=== PATIENT | male | born 1945 | race Caucasian/White ===

== ENCOUNTER → 2018-01-21 06:23 | Outpatient (CLI) | payer MEDICARE, BC, SELFPAY ==
--- NOTE | 2018-01-21 13:31 | STRESSREP_ITS ---
Stress Test Report Date: 01/21/2018 Procedure: Pharmacologic stress nuclear imaging study Indications: Atrial fibrillation Consent: Per the patient Procedure: The patient underwent pharmacologic (Regadenoson) evaluation with a peak heart rate of 90 beats per minute (62 predicted maximal heart rate) and a peak blood pressure of 140/86 mmHg. The baseline ECG demonstrated 0 fibrillation; nonspecific T wave abnormality. The peak pharmacologic ECG demonstrated no obvious ECG changes. There were no cardiac dysrhythmias pretest, during pharmacologic infusion, or recovery. There was no complaint of chest discomfort during pharmacologic infusion or recovery. The examination was discontinued secondary to completion of protocol. Impression: 1. Pharmacologic (Regadenoson) evaluation 2. Peak pharmacologic ECG with no obvious ECG changes. 3. There were no cardiac dysrhythmias pretest, during pharmacologic infusion, or recovery. 4. Nuclear images pending Myocardial perfusion imaging study: Technique: The patient was injected with 144.4 millicuries of technetium 99m Cardiolite and subsequently rest SPECT Cardiolite nuclear imaging was obtained in the horizontal long, vertical long, and short axis views. The patient underwent pharmacologic (Regadenoson) evaluation with a peak heart rate of 90 beats per minute (62 % percent predicted maximal heart rate) and a peak blood pressure of 140/86 mmHg. The patient was injected with 44.1 millicuries of technetium 99m Cardiolite and subsequently stress SPECT Cardiolite nuclear imaging was obtained in the horizontal long, vertical long, and short axis views. A gated Cardiolite study at peak stress was obtained. Interpretation: Rest and stress SPECT Cardiolite nuclear imaging status post realignment, normalization, and attenuation correction demonstrate small area of subtle diminished tracer uptake near the apical segments without significant change between rest and stress. There is end systolic thickening and brightening. The gated Cardiolite study demonstrates myocardial thickening and inward wall motion. The reported LVEF is 69%. Impression: 1. And stress SPECT Cardiolite nuclear imaging demonstrate myocardial perfusion changes appearing compatible with the effects of physiologic apical thinning with no myocardial perfusion changes considered diagnostic for associated stress-induced myocardial ischemia or previous myocardial injury/infarction. 2. The gated Cardiolite study reports an LVEF of 69 %. This note was generated with Ocapiation software. It may contain incorrect words, spelling, and punctuation that were not noted in checking the note before signing.
== END ==
PROVIDERS: Family Provider Family Medicine; PCP Family Medicine; Referring Provider Internal Medicine Cardiovascular Disease; Visit Provider Internal Medicine Cardiovascular Disease
DX: I48.1 Persistent atrial fibrillation (principal); R94.31 Abnormal electrocardiogram [ECG] [EKG]
CPT/HCPCS: 78452; 93017; A9500; A4216; J2785

== ENCOUNTER → 2018-01-31 10:18 | Outpatient (CLI) | payer MEDICARE, BC, SELFPAY ==
[2018-01-31 11:13] LABS: Anion Gap 3 (5-15); BUN 15 mg/dL (7-18); BUN/Creat Ratio 11.5 RATIO (10-20); Calcium,Total 8.6 mg/dL (8.5-10.1); Chloride 106 mmol/L (98-107); EST Glomerular Filtration Rate 57 mL/min (>60); Est Glom Filt Rate - Afr Amer 69 mL/min (>60); Glucose 213 mg/dL (74-106); Potassium 4.5 mmol/L (3.5-5.1); Sodium Level 137 mmol/L (136-145)
== END ==
PROVIDERS: Family Provider Family Medicine; PCP Family Medicine; Referring Provider Internal Medicine Cardiovascular Disease; Visit Provider Internal Medicine Cardiovascular Disease
DX: I48.91 Unspecified atrial fibrillation (principal)
CPT/HCPCS: 36415; 80048

== ENCOUNTER 2018-02-04 10:46 | Day surgery (SDC) | payer MEDICARE, BC, SELFPAY ==
[2018-02-03 10:13] VITALS: BMI 31.7
--- NOTE | 2018-02-04 13:29 | PCM.OP.BLANK ---
Operative Report Date of Procedure: 02/04/18 CONSCIOUS SEDATION REPORT DATE OF SERVICE: February 04, 2018 BRIEF HISTORY OF PRESENT ILLNESS: The patient is a 73-year-old male who presents to [facility] to undergo an elective outpatient cardioversion due to underlying atrial fibrillation. The patient's last surface echocardiogram revealed an ejection fraction of approximately 55%. He has never undergone a previous attempt at cardioversion. He denies any medication allergies. He does report a history of obstructive sleep apnea, for which he reportedly utilizes nocturnal PAP therapy. He denies a history of COPD or asthma. PHYSICAL EXAMINATION: VITAL SIGNS: Reviewed and were acceptable. GENERAL: The patient is an obese male, in no apparent distress, speaking in full sentences. HEENT: Normocephalic, atraumatic. Mucous membranes are moist and pink. Good mouth opening noted. Trachea is midline. Good neck mobility. MPIII CHEST: S1, S2 irregularly irregular. No murmurs, rubs or gallops were noted. LUNGS: Clear to auscultation bilaterally without appreciable wheezes, rales or rhonchi. ABDOMEN: Soft, nontender, nondistended. Positive bowel sounds. EXTREMITIES: There is no clubbing, cyanosis or edema. ASA Class: II DESCRIPTION OF PROCEDURE: After confirmation of informed consent, the patient's anesthesia plan was reviewed in detail. Propofol was chosen. Risks and benefits were reviewed and the patient agreed to proceed. At 1236, the patient received his first bolus of propofol. In total, the patient received 80 mg of propofol, after which time, he received a 200 J synchronized cardioversion by Dr. Rose at the bedside. This was unsuccessful in achieving normal sinus rhythm. The patient was then given an additional 40 mg of propofol, after which time, he received a 300 J synchronized cardioversion. This, too, was unsuccessful in restoring normal sinus rhythm. In total, the patient received 120 mg of propofol throughout the entire procedure. The patient was monitored until 1247, at which time, he reached his baseline mental status and function. The patient tolerated the procedure well. COMPLICATIONS: None ESTIMATED BLOOD LOSS: None RECOMMENDATIONS: Okay to recover in usual fashion. Code Visit 9xxxx: Other Procedure See Report - [id number]
--- NOTE | 2018-02-04 13:53 | PCM.OP.BLANK ---
Problem List (1) Atrial fibrillation Status: Chronic Qualifiers: Atrial fibrillation type: persistent Qualified Code(s): I48.1 - Persistent atrial fibrillation Operative Report Date of Procedure: 02/04/18 Procedure: Synchronized biphasic DC cardioversion Indications: Atrial fibrillation Consent: Per the patient Premedications: Per Dr. Anmol Jewell of pulmonology and critical care medicine with propofol 120 mg IV push total Procedure: Synchronized biphasic DC cardioversion: 200 J x1: Result: Sinus rhythm with return to atrial fibrillation Synchronized biphasic DC cardioversion: 300 J x1: Result: Sinus rhythm with return to atrial fibrillation Complications: No apparent complications This note was generated using a voice recognition system and there may be incorrect words, spelling or punctuation that were not noted when reviewing the office note prior to saving.
== END 2018-02-04 14:00 | disposition home or self-care (01) ==
LOC: CLSP 10:49
PROVIDERS: Family Provider Family Medicine; PCP Family Medicine; Referring Provider Internal Medicine Cardiovascular Disease; Visit Provider Internal Medicine Cardiovascular Disease
DX: I48.1 Persistent atrial fibrillation (principal); G47.33 Obstructive sleep apnea (adult) (pediatric); E66.9 Obesity, unspecified; E78.5 Hyperlipidemia, unspecified; I10 Essential (primary) hypertension; E11.9 Type 2 diabetes mellitus without complications; K21.9 Gastro-esophageal reflux disease without esophagitis; Z68.31 Body mass index [BMI] 31.0-31.9, adult; Z85.46 Personal history of malignant neoplasm of prostate; Z87.891 Personal history of nicotine dependence
CPT/HCPCS: 92960; 93005; J7040

== ENCOUNTER 2018-02-25 08:24 | Observation (INO) | payer MEDICARE, BC, SELFPAY ==
[2018-02-25] VITALS (8 sets, daily range): BP systolic 117–120; BP diastolic 71–73; PULSE 55–86; RESP 16; TEMP 36.5–36.6; O2SAT 95–96; BMI 30.8
--- NOTE | 2018-02-25 08:40 | EKG12_ITS ---
Test Reason : MED Blood Pressure : / mmHG Vent. Rate : 087 BPM Atrial Rate : 416 BPM P-R Int : 000 ms QRS Dur : 100 ms QT Int : 364 ms P-R-T Axes : 000 -45 006 degrees QTc Int : 438 ms Atrial fibrillation Left axis deviation Abnormal ECG When compared with ECG of 04-FEB-2018 11:04, No significant change was found Confirmed by MUNDO BROWN, JESICA ([id number]), manuscript editor ALEX NICOLE ([id number]) on 03/03/2018 2:24:35 PM Referred By: Richie Rose Confirmed By:JESICA FLOWER MD
[2018-02-25 09:27] LABS: Hematocrit 44.6 % (40-54); Mean Corp Hgb Conc 33.6 g/gl (32-36); Mean Platelet Vol. 10.4 fl (6.2-12.0); Platelet Count 127 K/mm3 (150-450); RBC Distribution Width CV 13.7 % (11.6-14.6); RBC Distribution Width SD 48.3 fl (35.1-43.9); Red Blood Count 4.55 M/mm3 (4.6-6.2); White Blood Count 5.6 K/mm3 (4.4-11.0)
[2018-02-25 09:29] LABS: Scan Indicated on CBC? Y/N NO
[2018-02-25 09:39] LABS: AST(SGOT) 24 U/L (15-37); Alanine Aminotransfer ALT/SGPT 54 U/L (16-61); Albumin, Serum 3.5 g/dL (3.2-5.0); Alkaline Phosphatase 51 U/L (45-117); Anion Gap 8 (5-15); BUN 24 mg/dL (7-18); BUN/Creat Ratio 12.8 RATIO (10-20); Calcium,Total 8.8 mg/dL (8.5-10.1); Chloride 106 mmol/L (98-107); Creatinine, Serum 1.88 mg/dL (0.70-1.30); EST Glomerular Filtration Rate 37 mL/min (>60); Est Glom Filt Rate - Afr Amer 45 mL/min (>60); Estimated Creatinine Clearance 39.47 ml/min; Globulin 3.4 g/dL (2.2-4.2); Glucose 307 mg/dL (74-106); Magnesium 1.8 mg/dL (1.6-2.6); Potassium 4.7 mmol/L (3.5-5.1); Protein, Total 6.9 g/dL (6.4-8.2); Sodium Level 137 mmol/L (136-145)
[2018-02-25] MEDS: Flecainide 100 MG Tablet PO ×2 (09:39→21:33)
--- NOTE | 2018-02-25 11:25 | NURSING ---
Patient received phone call that his , a patient a [facility], has head lice. This RN inspected patient's head and saw no evidence of head lice on patient.
--- NOTE | 2018-02-25 11:40 | EKG12_ITS ---
Test Reason : MED Blood Pressure : / mmHG Vent. Rate : 063 BPM Atrial Rate : 326 BPM P-R Int : 000 ms QRS Dur : 106 ms QT Int : 396 ms P-R-T Axes : 000 -43 -06 degrees QTc Int : 405 ms Atrial fibrillation Left axis deviation Abnormal ECG When compared with ECG of 25-FEB-2018 09:18, MANUAL COMPARISON REQUIRED, DATA IS UNCONFIRMED Confirmed by MUNDO BROWN, JESICA ([id number]), publications editor ALEX NICOLE ([id number]) on 03/03/2018 2:24:06 PM Referred By: Richie Rose Confirmed By:JESICA FLOWER MD
[2018-02-25 11:45] LABS: Bedside Glucose 250 mg/dL (70-110)
--- NOTE | 2018-02-25 17:04 | HP.PCM_ITS ---
Problem List (1) Encounter for monitoring anti-arrhythmic therapy Status: Acute (2) Atrial fibrillation Status: Chronic Qualifiers: (3) Hyperlipemia Status: Chronic Qualifiers: (4) Hypertension Status: Chronic Qualifiers: (5) Type 2 diabetes mellitus Status: Chronic (6) Obstructive sleep apnea Status: Chronic History of Present Illness Date of Admission: 02/25/18 The patient is a 73 year old white male with a past cardiovascular history which has included underlying atrial fibrillation, hyperlipidemia, hypertension, diabetes mellitus, and obstructive sleep apnea (followed by Dr. Farnsworth), who presents for antiarrhythmic medication initiation/monitoring. He has undergone evaluation for his atrial dysrhythmia. He had a transthoracic echocardiogram performed on 09/19/2017 at [facility] in [place], [place]. According to report the left ventricle was normal with an LVEF of 55%. The atria were normal size. There was no MR. There was mild AI. There was trivial TR and ID. He also subsequently underwent evaluation with a pharmacologic stress nuclear imaging study at [facility]. This was considered negative for evidence of inducible myocardial ischemia. He underwent an attempt at synchronized biphasic DC cardioversion on 02/04/2018. He was able to regain sinus rhythm but not maintain sinus rhythm. He presents today for initiation of antiarrhythmic therapy. He states he is doing well. He denies any ongoing chest discomfort or difficulty breathing at this time. There has been no ongoing potation or rapid rate sensations. There has been no near syncope or syncope. [] Past Medical History Allergies/Adverse Reactions: Allergies No Known Allergies Allergy (Verified 02/11/18 10:28) Home Medications: Ambulatory Orders Medication Instructions Recorded aspirin 81 mg tablet,delayed 81 mg PO DAILY 01/07/18 release diltiazem ER 180 mg capsule,24 180 mg PO DAILY 01/07/18 hr,extended release esomeprazole magnesium 40 mg 40 mg PO DAILY 01/07/18 capsule,delayed release glimepiride 4 mg tablet 2 mg PO BIDCM 01/07/18 lisinopril 20 mg tablet 20 mg PO DAILY 01/07/18 ranitidine 150 mg capsule 150 mg PO DAILY@1700 01/07/18 rivaroxaban 20 mg tablet 20 mg PO DAILY 01/07/18 sitagliptin 100 mg tablet 100 mg PO DAILY 01/07/18 Past Medical History (Chronic Problems): Chronic Problems (Last Reviewed 01/09/18 @ 11:20 by Julia Ramirez) Obstructive sleep apnea (Chronic) Atrial fibrillation (Chronic) Hyperlipemia (Chronic) Hypertension (Chronic) Type 2 diabetes mellitus (Chronic) Lives: Spouse/ Significant Other Smoking Status: Former smoker Alcohol: None Drugs: None Review of Systems - Review of Systems General: Denies: Fever, Night Sweats, Fatigue Cardiovascular: Denies: Chest Discomfort, Shortness of Breath, Orthopnea, PND, Peripheral Edema, Palpitations, Lightheadedness, Dizziness, Near Syncope, Syncope Respiratory: Denies: Cough, Sputum Production, Hemoptysis Gastrointestinal: Denies: Hematemesis, Hematochezia, Melena Genitourinary: Denies: Dysuria, Hematuria Skin: Denies: Rash Subjectve: This is a 73-year-old white male who appears to be resting comfortably at the moment in no acute distress. Objective: Vital Signs Temp Pulse Resp BP Pulse Ox 97.7 F L 68 16 117/72 95 02/25/18 15:18 02/25/18 15:18 02/25/18 15:18 02/25/18 15:18 02/25/18 15:18 Oxygen Delivery Method Room Air Weight: 240 lb Body Mass Index (BMI) 30.8 Intake and Output for Last 24 Hours 02/23/18 02/24/18 02/25/18 23:59 23:59 23:59 Intake Total 100 / 100 Balance 100 / 100 General: Awake, Alert, Oriented x 3, Cooperative, No Acute Distress HEENT: Atraumatic, Normocephalic, PERRL, EOMI, Sclera Non Icteric Oral: Moist Mucosa Neck: Supple, Good ROM, No JVD Lungs: Clear to auscultation Cardiovascular: Irregular Rhythm, Normal S1, Normal S2 Vascular: No Carotid Bruits Abdomen: Bowel Sounds Present, Soft, Non Tender Extremities: No Cyanosis, No Clubbing, No edema Neurological: No Focal Motor or Sensory Deficit Psych/Mental Status: Appropriate, Normal Affect VTE Information - Inpt Only VTE Present on Admission: No VTE Mechan Device Prophylaxis: None VTE Pharm Prophylaxis ordered?: No Reason prophylaxis not ordered:: Treatment Not Indicated - Patient on oral systemic anticoagulant therapy 02/25/18 09:15: WBC 5.6, RBC 4.55 L, Hgb 15.0, Hct 44.6, MCV 98.0 H, MCH 33.0 H, MCHC 33.6, RDW 13.7, RDW Differential 48.3 H, Plt Count 127 L, MPV 10.4 02/25/18 09:15: Sodium 137, Potassium 4.7, Chloride 106, Carbon Dioxide 23.0, Anion Gap 8, BUN 24 H, Creatinine 1.88 H, Est GFR (MDRD) Af Amer 45 L, Est GFR (MDRD) Non-Af 37 L, BUN/Creatinine Ratio 12.8, Glucose 307 H, Calcium 8.8, Magnesium 1.8, Total Bilirubin 1.10 H Rhythm: Atrial fibrillation EKG: Atrial fibrillation; left axis deviation; poor R wave progression ECHO: As noted above Stress Test: As noted above Assessment/Plan 1. Antiarrhythmic medication initiation and monitoring The patient is admitted for antiarrhythmic medication initiation and monitoring. He is going to continue rate control therapy and anticoagulant therapy. He is being started on antiarrhythmic therapy with flecainide/Tambocor. He will need to be monitored in the hospital for a minimum of 4 doses of antiarrhythmic therapy. Depending upon his clinical course he will need to be considered for a reattempt at regaining sinus rhythm, if he does not have spontaneous conversion, with a repeat synchronized biphasic DC cardioversion. Also if he tolerates his antiarrhythmic without any obvious events he will need to be considered for future exercise tolerance test to evaluate his cardiac rate/rhythm response to his antiarrhythmic therapy. 2. Atrial fibrillation Again he will continue to be monitored. He will initiate medical management as noted above. He will proceed with additional evaluation care as deemed appropriate. 3. Hyperlipidemia He will continue risk factor evaluation and care as deemed appropriate. 4. Hypertension His blood pressure will be followed. He will continue medical management with adjustment as needed. 5. Diabetes mellitus He will continue medical management and follow-up as deemed appropriate. 6. Obstructive sleep apnea He will continue to follow with his membership sales manager for his AUGUSTIN. Comment: The above was discussed and reviewed with patient. He was agreeable to this approach. This note was generated with F[employer]oration software. It may contain incorrect words, spelling, and punctuation that were not noted in checking the note before signing.
[2018-02-25 21:46] LABS: Bedside Glucose 279 mg/dL (70-110)
[2018-02-25] MEDS: Famotidine 20 MG Tablet PO (22:42)
[2018-02-25] MEDS: Glimepiride 2 MG Tablet PO (22:42)
--- NOTE | 2018-02-25 23:35 | EKG12_ITS ---
Test Reason : PCU ADMIT Blood Pressure : / mmHG Vent. Rate : 059 BPM Atrial Rate : 375 BPM P-R Int : 000 ms QRS Dur : 106 ms QT Int : 410 ms P-R-T Axes : 000 -45 -07 degrees QTc Int : 405 ms Atrial fibrillation with slow ventricular response Left axis deviation Abnormal ECG When compared with ECG of 25-FEB-2018 11:33, MANUAL COMPARISON REQUIRED, DATA IS UNCONFIRMED Confirmed by MUNDO BROWN, JESICA ([id number]), editor in chief newspaper ALEX NICOLE ([id number]) on 03/03/2018 2:05:51 PM Referred By: Richie Rose Confirmed By:JESICA FLOWER MD
[2018-02-26] VITALS (10 sets, daily range): BP systolic 115–126; BP diastolic 71–77; PULSE 66–98; RESP 12–18; TEMP 36.5–36.7; O2SAT 92–98
--- NOTE | 2018-02-26 05:55 | EKG12_ITS ---
Test Reason : MED Blood Pressure : / mmHG Vent. Rate : 059 BPM Atrial Rate : 288 BPM P-R Int : 000 ms QRS Dur : 110 ms QT Int : 412 ms P-R-T Axes : 000 -48 012 degrees QTc Int : 407 ms Atrial fibrillation with slow ventricular response Left axis deviation Abnormal ECG When compared with ECG of 26-FEB-2018 11:39, MANUAL COMPARISON REQUIRED, DATA IS UNCONFIRMED Confirmed by MUNDO BROWN, JESICA ([id number]), communications editor ALEX NICOLE ([id number]) on 03/03/2018 1:49:44 PM Referred By: Richie Rose Confirmed By:JESICA FLOWER MD
[2018-02-26 06:09] LABS: Anion Gap 9 (5-15); BUN 22 mg/dL (7-18); BUN/Creat Ratio 16.7 RATIO (10-20); Chloride 104 mmol/L (98-107); Cholesterol 169 mg/dL (200); Creatinine, Serum 1.32 mg/dL (0.70-1.30); EST Glomerular Filtration Rate 56 mL/min (>60); Est Glom Filt Rate - Afr Amer 68 mL/min (>60); Estimated Creatinine Clearance 56.22 ml/min; Glucose 221 mg/dL (74-106); High Density Lipoprotein 44 mg/dL; Potassium 4.1 mmol/L (3.5-5.1); Sodium Level 139 mmol/L (136-145); Triglycerides 146 mg/dL; Very Low Density Lipoprotein 29 mg/dL (5-40)
[2018-02-26 07:11] LABS: Bedside Glucose 240 mg/dL (70-110)
[2018-02-26] MEDS: Flecainide 100 MG Tablet PO ×2 (09:34→21:09)
[2018-02-26] MEDS: Pantoprazole Sodium 40 MG Tablet PO (09:34)
[2018-02-26] MEDS: dilTIAZem CD 180 MG Capsule PO (09:34)
[2018-02-26] MEDS: LINAGLIPTIN 5 MG TABLET PO (09:34)
[2018-02-26] MEDS: Lisinopril 20 MG Tablet PO (09:34)
[2018-02-26] MEDS: Glimepiride 4 MG Tablet PO (09:35)
[2018-02-26] MEDS: Aspirin 81 MG TAB.CHEW PO (09:35)
--- NOTE | 2018-02-26 11:24 | PN.CARD_ITS ---
Subjectve: Shunt is awake and alert. He has been up and ambulating. He denies any ongoing chest discomfort, difficulty breathing, or obvious palpitations. Objective: Vital Signs Temp Pulse Resp BP Pulse Ox 97.7 F L 75 12 123/71 H 94 02/26/18 09:15 02/26/18 10:58 02/26/18 09:15 02/26/18 09:15 02/26/18 09:15 Oxygen Delivery Method Room Air Weight: 240 lb Body Mass Index (BMI) 30.8 Intake and Output for Last 24 Hours 02/24/18 02/25/18 02/26/18 23:59 23:59 23:59 Intake Total 580 / 580 620 / 620 Output Total 2 / Balance 578 / 578 620 / 620 General: Awake, Alert, Oriented x 3, Cooperative, No Acute Distress HEENT: Atraumatic, Normocephalic, PERRL, EOMI Oral: Moist Mucosa Neck: Supple, Good ROM, No JVD Lungs: Clear to auscultation Cardiovascular: Irregular Rhythm, Normal S1, Normal S2 Vascular: No Carotid Bruits Abdomen: Bowel Sounds Present, Soft, Non Tender Extremities: No Cyanosis, No Clubbing, No edema Neurological: No Focal Motor or Sensory Deficit Psych/Mental Status: Appropriate, Normal Affect 02/26/18 05:25: Sodium 139, Potassium 4.1, Chloride 104, Carbon Dioxide 26.0, Anion Gap 9, BUN 22 H, Creatinine 1.32 H, Est GFR (MDRD) Af Amer 68, Est GFR (MDRD) Non-Af 56 L, BUN/Creatinine Ratio 16.7, Glucose 221 H, Calcium 9.0, Triglycerides 146, Cholesterol 169, LDL Cholesterol 96, VLDL Cholesterol 29, HDL Cholesterol 44 Rhythm: Atrial fibrillation EKG: Atrial fibrillation: No acute ECG changes Medical Necessity - Tobacco Use Smoking Status: Former smoker Assessment/Plan 1. Antiarrhythmic medication initiation and monitoring The patient is admitted for antiarrhythmic medication initiation and monitoring. Thus far he appears to be tolerating antiarrhythmic initiation without obvious adverse event. He is going to continue rate control therapy and anticoagulant therapy. He is being started on antiarrhythmic therapy with flecainide/Tambocor. He will need to be monitored in the hospital for a minimum of 4 doses of antiarrhythmic therapy. Depending upon his clinical course he will need to be considered for a reattempt at regaining sinus rhythm, if he does not have spontaneous conversion, with a repeat synchronized biphasic DC cardioversion. Also if he tolerates his antiarrhythmic without any obvious events he will need to be considered for future exercise tolerance test to evaluate his cardiac rate/rhythm response to his antiarrhythmic therapy. 2. Atrial fibrillation Again he will continue to be monitored. He will initiate medical management as noted above. He will proceed with additional evaluation care as deemed appropriate. 3. Hyperlipidemia He will continue risk factor evaluation and care as deemed appropriate. 4. Hypertension His blood pressure will be followed. He will continue medical management with adjustment as needed. 5. Diabetes mellitus He will continue medical management and follow-up as deemed appropriate. 6. Obstructive sleep apnea He will continue to follow with his electron tube assembler for his AUGUSTIN. Comment: The above was discussed and reviewed with patient. This note was generated with LocalView dictation software. It may contain incorrect words, spelling, and punctuation that were not noted in checking the note before signing.
--- NOTE | 2018-02-26 11:30 | EKG12_ITS ---
Test Reason : FLECAINIDE/MED Blood Pressure : / mmHG Vent. Rate : 077 BPM Atrial Rate : 322 BPM P-R Int : 000 ms QRS Dur : 106 ms QT Int : 382 ms P-R-T Axes : 000 -49 005 degrees QTc Int : 432 ms Atrial flutter with variable A-V block Left axis deviation Abnormal ECG When compared with ECG of 26-FEB-2018 04:56, MANUAL COMPARISON REQUIRED, DATA IS UNCONFIRMED Confirmed by MUNDO BROWN, JESICA ([id number]), deputy editor in chief ALEX NICOLE ([id number]) on 03/03/2018 2:02:18 PM Referred By: Richie Rose Confirmed By:JESICA FLOWER MD
[2018-02-26 11:40] LABS: Bedside Glucose 275 mg/dL (70-110)
[2018-02-26] MEDS: Insulin Lispro 100 UNIT/ML INSULN.PEN SC ×3 (13:35→21:09)
[2018-02-26 16:50] LABS: Bedside Glucose 230 mg/dL (70-110)
[2018-02-26] MEDS: Rivaroxaban 15 MG Tablet PO (17:21)
[2018-02-26] MEDS: Glimepiride 2 MG Tablet PO (17:21)
[2018-02-26] MEDS: Famotidine 20 MG Tablet PO (21:09)
--- NOTE | 2018-02-26 23:00 | EKG12_ITS ---
Test Reason : Blood Pressure : / mmHG Vent. Rate : 071 BPM Atrial Rate : 375 BPM P-R Int : 000 ms QRS Dur : 108 ms QT Int : 414 ms P-R-T Axes : 000 -48 -01 degrees QTc Int : 449 ms Atrial fibrillation Left axis deviation Abnormal ECG When compared with ECG of 25-FEB-2018 23:30, MANUAL COMPARISON REQUIRED, DATA IS UNCONFIRMED Confirmed by MUNDO BROWN, JESICA ([id number]), city editor ALEX NICOLE ([id number]) on 03/03/2018 2:05:11 PM Referred By: Richie Rose Confirmed By:JESICA FLOWER MD
[2018-02-26 23:30] LABS: Bedside Glucose 236 mg/dL (70-110)
[2018-02-27 03:00] VITALS: BP 118/78; PULSE 64; PULSE 67; RESP 14; TEMP 36.7; O2SAT 97
--- NOTE | 2018-02-27 05:55 | EKG12_ITS ---
Test Reason : AM EKG Blood Pressure : / mmHG Vent. Rate : 064 BPM Atrial Rate : 100 BPM P-R Int : 000 ms QRS Dur : 108 ms QT Int : 410 ms P-R-T Axes : 000 -50 005 degrees QTc Int : 422 ms Atrial fibrillation Left axis deviation Abnormal ECG When compared with ECG of 26-FEB-2018 22:56, MANUAL COMPARISON REQUIRED, DATA IS UNCONFIRMED Confirmed by MUNDO BROWN, JESICA ([id number]), book or script editor ALEX NICOLE ([id number]) on 03/03/2018 1:50:18 PM Referred By: Richie Rose Confirmed By:JESICA FLOWER MD
[2018-02-27 06:29] LABS: Anion Gap 11 (5-15); BUN 24 mg/dL (7-18); BUN/Creat Ratio 17.1 RATIO (10-20); Calcium,Total 9.2 mg/dL (8.5-10.1); Chloride 102 mmol/L (98-107); EST Glomerular Filtration Rate 53 mL/min (>60); Est Glom Filt Rate - Afr Amer 64 mL/min (>60); Estimated Creatinine Clearance 53.01 ml/min; Glucose 224 mg/dL (74-106); Potassium 4.3 mmol/L (3.5-5.1); Sodium Level 137 mmol/L (136-145)
[2018-02-27 06:59] VITALS: PULSE 72
[2018-02-27 09:00] VITALS: BP 116/69; PULSE 71; RESP 16; TEMP 36.4; O2SAT 95
[2018-02-27] MEDS: Glimepiride 4 MG Tablet PO (09:15)
[2018-02-27] MEDS: Pantoprazole Sodium 40 MG Tablet PO (09:15)
[2018-02-27] MEDS: Insulin Lispro 100 UNIT/ML INSULN.PEN SC ×2 (09:15→11:25)
[2018-02-27] MEDS: LINAGLIPTIN 5 MG TABLET PO (09:15)
[2018-02-27] MEDS: Flecainide 100 MG Tablet PO (09:15)
[2018-02-27] MEDS: Aspirin 81 MG TAB.CHEW PO (09:15)
[2018-02-27] MEDS: dilTIAZem CD 180 MG Capsule PO (09:15)
[2018-02-27] MEDS: Lisinopril 20 MG Tablet PO (09:15)
[2018-02-27 11:07] VITALS: PULSE 70
--- NOTE | 2018-02-27 11:20 | EKG12_ITS ---
Test Reason : Blood Pressure : / mmHG Vent. Rate : 067 BPM Atrial Rate : 063 BPM P-R Int : 000 ms QRS Dur : 110 ms QT Int : 404 ms P-R-T Axes : 000 -52 006 degrees QTc Int : 426 ms Atrial fibrillation Left axis deviation Abnormal ECG When compared with ECG of 27-FEB-2018 04:53, MANUAL COMPARISON REQUIRED, DATA IS UNCONFIRMED Confirmed by MUNDO BROWN, JESICA ([id number]), manuscript editor ALEX NICOLE ([id number]) on 03/03/2018 1:50:33 PM Referred By: Richie Rose Confirmed By:JESICA FLOWER MD
[2018-02-27 11:41] LABS: Bedside Glucose 258 mg/dL (70-110)
--- NOTE | 2018-02-27 12:20 | CASEMGMT ---
This [facility] room with HODGE form at this time, explanation done and pt voices understanding. Pt signed HODGE form a this time. Pt voices no further questions/concerns/needs at this time. Original to chart and copy to pt at this time. Jass BIGGS CM
[2018-02-27 14:55] VITALS: BP 117/73; PULSE 74; RESP 18; TEMP 36.4; O2SAT 97
[2018-02-27 15:16] VITALS: PULSE 73
--- NOTE | 2018-02-27 15:33 | PCM.DC ---
- Discharge Diagnoses Current Active Problems: Current Active and Chronic Problems (Last Reviewed 01/09/18 @ 11:20 by Julia Ramirez) Encounter for monitoring anti-arrhythmic therapy (Acute) Obstructive sleep apnea (Chronic) You will use the following diet at home:: Calorie/Carbohydrate Controlled (specify 1200, 1400, etc), Cardiac Your food should be the consistency of: Regular Discharge Activity: Return to Normal Activity May resume sexual activity in: No Restrictions Call your doctor if you observe: Dizziness, Fainting spells Allergies/Adverse Reactions: Allergies No Known Allergies Allergy (Verified 02/11/18 10:28) Medications to take at Discharge aspirin 81 mg tablet,delayed release 81 mg PO DAILY 01/07/18 diltiazem ER 180 mg capsule,24 hr,extended release 180 mg PO DAILY 01/07/18 esomeprazole magnesium 40 mg capsule,delayed release 40 mg PO DAILY 01/07/18 glimepiride 4 mg tablet 2 mg PO BIDCM 01/07/18 lisinopril 20 mg tablet 20 mg PO DAILY 01/07/18 ranitidine 150 mg capsule 150 mg PO QHS 01/07/18 rivaroxaban 20 mg tablet 20 mg PO DAILY 01/07/18 sitagliptin 100 mg tablet 100 mg PO DAILY 01/07/18 Glimepiride [Amaryl] 2 mg PO QHS 02/25/18 Aspirin [Aspirin, Baby] 81 mg PO DAILY@0800 tab.chew 02/27/18 Diltiazem CD [Cardizem CD] 180 mg PO DAILY capsule 02/27/18 Flecainide [Tambocor] 100 mg PO BID #60 tablet 02/27/18 Glimepiride [Amaryl] 4 mg PO DAILY@0800 tablet 02/27/18 Linagliptin [Tradjenta] 5 mg PO DAILY tablet 02/27/18 Lisinopril [Zestril] 20 mg PO DAILY tablet 02/27/18 Pantoprazole Sodium [Protonix] 40 mg PO DAILY tablet 02/27/18 Rivaroxaban [Xarelto] 15 mg PO DAILY@1700 tablet 02/27/18 The following prescriptions were given: Flecainide [Tambocor] 100 mg PO BID #60 tablet Primary Care Physician: Gabe Beaver [Primary Care Provider] - Test Results: Test results from this visit will be discussed in further detail at your follow-up appointment, if applicable. Please Follow Up With: Richie Rose MD When: [facility] to contact the patient and arrange outpatient follow up
--- NOTE | 2018-02-27 15:39 | DS.PCM_ITS ---
Discharge Date and Diagnosis - Problem List Patient Problems: Active and Suspected Problems (Last Reviewed 01/09/18 @ 11:20 by Julia Ramirez) Encounter for monitoring anti-arrhythmic therapy (Acute) Date of Admission: 02/25/18 Date of Discharge: 02/27/18 - Primary Discharge Diagnosis Active and Suspected Problems (Last Reviewed 01/09/18 @ 11:20 by Julia Ramirez) Encounter for monitoring anti-arrhythmic therapy (Acute) - Secondary Discharge Diagnosis Chronic Problems (Last Reviewed 01/09/18 @ 11:20 by Julia Ramirez) Obstructive sleep apnea (Chronic) Atrial fibrillation (Chronic) Hyperlipemia (Chronic) Hypertension (Chronic) Type 2 diabetes mellitus (Chronic) Hospital Course and Treatment Summary of Care Provided: The patient is a 73 year old white male with a past medical history of atrial fibrillation. He was admitted to [facility] for antiarrhythmic medication monitoring with flecainide/tambocor. During the admission he had continued cardiac rhythm monitoring, ECG follow up, and laboratory follow up. He remained stable with no adverse events. He was released on 02/27/2018 for continued outpatient cardiology follow up with consideration for future repeat DC cardioversion (on antiarrhythmic therapy). [] Patient Problems: Active and Suspected Problems (Last Reviewed 01/09/18 @ 11:20 by Julia Ramirez) Encounter for monitoring anti-arrhythmic therapy (Acute) Subjective: This is a 73 yo white male who appears in no acute distress. - Physical Exam General: Alert, Oriented x3, Cooperative, No apparent distress HEENT: Atraumatic, PERRLA, EOMI, Normocephalic Oral: Moist Mucosa Neck: Supple, No JVD Lungs: Clear to auscultation Cardiovascular: Normal S1, Normal S2, Irregular Rate Abdomen: Bowel Sounds Present, Soft, Non Tender Extremities: No clubbing, No cyanosis, No edema Neurological: Neuro grossly intact Psych/Mental Status: Normal Affect Vital Signs Temp Pulse Resp BP Pulse Ox 97.5 F L 74 18 117/73 97 02/27/18 14:55 02/27/18 14:55 02/27/18 14:55 02/27/18 14:55 02/27/18 14:55 Oxygen Delivery Method Room Air Weight: 240 lb Body Mass Index (BMI) 30.8 Intake and Output for Last 24 Hours 02/25/18 02/26/18 02/27/18 23:59 23:59 23:59 Intake Total 580 / 580 1580 / 1580 620 / 620 Output Total 2 / 2 Balance 578 / 578 1580 / 1580 620 / 620 Laboratory Tests Past 24 Hrs 02/27/18 05:55 Sodium 137 Potassium 4.3 Chloride 102 Carbon Dioxide 24.0 Anion Gap 11 BUN 24 H Creatinine 1.40 H Estim Creat Clear Calc 53.01 Est GFR (MDRD) Af Amer 64 Est GFR (MDRD) Non-Af 53 L BUN/Creatinine Ratio 17.1 Glucose 224 H Calcium 9.2 POC Glucose 02/27/18 02/26/18 02/26/18 11:23 21:07 16:22 POC Glucose 258 H 236 H 230 H Discharge Activity: Return to Normal Activity May resume sexual activity in: No Restrictions Call your doctor if you observe: Dizziness, Fainting spells Home Medications: Medications to take at Discharge aspirin 81 mg tablet,delayed release 81 mg PO DAILY 01/07/18 diltiazem ER 180 mg capsule,24 hr,extended release 180 mg PO DAILY 01/07/18 esomeprazole magnesium 40 mg capsule,delayed release 40 mg PO DAILY 01/07/18 glimepiride 4 mg tablet 2 mg PO BIDCM 01/07/18 lisinopril 20 mg tablet 20 mg PO DAILY 01/07/18 ranitidine 150 mg capsule 150 mg PO QHS 01/07/18 rivaroxaban 20 mg tablet 20 mg PO DAILY 01/07/18 sitagliptin 100 mg tablet 100 mg PO DAILY 01/07/18 Glimepiride [Amaryl] 2 mg PO QHS 02/25/18 Aspirin [Aspirin, Baby] 81 mg PO DAILY@0800 tab.chew 02/27/18 Diltiazem CD [Cardizem CD] 180 mg PO DAILY capsule 02/27/18 Flecainide [Tambocor] 100 mg PO BID #60 tablet 02/27/18 Glimepiride [Amaryl] 4 mg PO DAILY@0800 tablet 02/27/18 Linagliptin [Tradjenta] 5 mg PO DAILY tablet 02/27/18 Lisinopril [Zestril] 20 mg PO DAILY tablet 02/27/18 Pantoprazole Sodium [Protonix] 40 mg PO DAILY tablet 11/15/18 Rivaroxaban [Xarelto] 15 mg PO DAILY@1700 tablet 02/27/18 Following Prescrptions Were Given to Patient: Flecainide [Tambocor] 100 mg PO BID #60 tablet Primary Care Physician: Gabe Beaver [Primary Care Provider] - Please Follow Up With: Richie Rose MD When: [facility] to contact the patient and arrange outpatient follow up Minutes spent on discharge:: 30 Patient Condition:: Stable Medical Necessity - Tobacco Use Smoking Status: Former smoker Meaningful Use Info Meaningful Use Diagnoses (Choose all that apply): None applicable
== END 2018-02-27 15:35 | disposition home or self-care (01) ==
PROVIDERS: Admitting Provider Internal Medicine Cardiovascular Disease; Family Provider Family Medicine; PCP Family Medicine; Referring Provider Internal Medicine Cardiovascular Disease; Visit Provider Internal Medicine Cardiovascular Disease
DX: I48.2 Chronic atrial fibrillation (principal); G47.33 Obstructive sleep apnea (adult) (pediatric); I10 Essential (primary) hypertension; E78.5 Hyperlipidemia, unspecified; E11.9 Type 2 diabetes mellitus without complications; Z79.899 Other long term (current) drug therapy; Z79.84 Long term (current) use of oral hypoglycemic drugs; Z79.82 Long term (current) use of aspirin; Z87.891 Personal history of nicotine dependence
CPT/HCPCS: 36415; 80048; 80053; 80061; 82962; 83735; 84443; 85027; 93005; 99218; G0378; G0379

== ENCOUNTER 2018-03-25 09:51 | Day surgery (SDC) | payer MEDICARE, BC, SELFPAY ==
[2018-03-11 14:28] VITALS: BMI 31.8
[2018-03-24 09:58] VITALS: BMI 31.8
--- NOTE | 2018-03-25 14:11 | PCM.OP.BLANK ---
Problem List (1) Atrial fibrillation Status: Chronic Qualifiers: Atrial fibrillation type: chronic Comment: DDCV 02/04/2018; (2) Hyperlipemia Status: Chronic Qualifiers: (3) Hypertension Status: Chronic Qualifiers: (4) Obstructive sleep apnea Status: Chronic (5) Type 2 diabetes mellitus Status: Chronic Operative Report Date of Procedure: 03/25/18 - Conscious sedation CONSCIOUS SEDATION REPORT BRIEF HISTORY OF PRESENT ILLNESS: The patient is a 73-year-old male who presented to [facility] for an elective outpatient cardioversion due to underlying atrial fibrillation. The patient reports no PO intake since midnight. The patient does have a history of obstructive sleep apnea. The patient reports a history of smoking, but no COPD. The patient denies any recent constitutional symptoms such as fevers, chills, nausea or vomiting. The patient denies previous anesthetic complications. Last known ejection fraction of 55% PHYSICAL EXAMINATION: VITAL SIGNS: Reviewed and were acceptable. GENERAL: The patient is a male, in no apparent distress, speaking in full sentences. HEENT: Normocephalic, atraumatic. Mucous membranes are moist and pink. Good mouth opening noted. Trachea is midline. Good neck mobility. MP IV CHEST: S1, S2 irregularly irregular. No murmurs, rubs or gallops were noted. LUNGS: Clear to auscultation bilaterally without appreciable wheezes, rales or rhonchi. ABDOMEN: Soft, nontender, nondistended. Positive bowel sounds. EXTREMITIES: There is no clubbing, cyanosis or edema. ASA Class: II DESCRIPTION OF PROCEDURE: After confirmation of informed consent, the patient's anesthesia plan was reviewed in detail. Propofol was chosen. Risks and benefits were reviewed and the patient agreed to proceed. At 11:14 AM, the patient was given 40 mg of propofol. The patient required a total of 90 mg of propofol throughout the procedure to achieve appropriate sedation. The patient achieved an appropriate level of sedation and received 1 attempt s synchronized cardioversion, at [address] Rose at the bedside. This was successful in achieving normal sinus rhythm. The patient was monitored until 11:25 AM, at which time the patient reached their baseline mental status and function. The patient tolerated the procedure well. COMPLICATIONS: None ESTIMATED BLOOD LOSS: None RECOMMENDATIONS: Okay to recover in usual fashion. Code Visit [id number]: Other Procedure See Report - 50132 -11 minutes conscious sedation
--- NOTE | 2018-03-25 16:20 | PCM.OP.BLANK ---
Problem List (1) Atrial fibrillation Status: Chronic Qualifiers: Atrial fibrillation type: chronic Comment: DDCV 02/04/2018; Operative Report Date of Procedure: 03/25/18 Procedure: Synchronized Biphasic DC Cardioversion Indications: Trial fibrillation Consent: [Per the Patient] Anesthesia: per Dr. Tejada of pulmonology and critical care medicine with propofol 90 mg IV push total Procedure: Synchronized Biphasic DC Cardioversion: 200 J x1: Result: Sinus rhythm Complications: no apparent complications This note was generated with [employer] software. It may contain incorrect words, spelling, and punctuation that were not noted in checking the note before signing.
--- OUTSIDE RECORDS SUMMARY | 2018-05-11 10:01 | XMS RPT_ITS ---
:1945 Author Organization OHIP Support Name Relationship Address Phone BERRY JEWELL Unavailable [address] + [place] [address] BROWNS FURNITURE Unavailable [address] + [place] [address] , AMAIRANI Unavailable [address] + [place] [address] ELAN BERRY Unavailable [address] + [place] [address] BROW[employer]URN[employer] Unavailable [address] + [place] [address] ROCK, AMAIRANI Unavailable [address] + [place] [address] ELAN, BERRY Unavailable [address] + [place] [address] BROWNS FURNIT[employer] Unavailable [address] + [place] [address] ROCK, AMAIRANI Unavailable [address] + [place] [address] ELAN BERRY Unavailable [address] + [place] [address] BROWNS FURNIT[employer] Unavailable [address] + [place] [address] ROCK, AMAIRANI Unavailable [address] + [place] [address] ELAN BERRY Unavailable [address] + [place] [address] ROCK, AMAIRANI Unavailable [address] + [place] [address] SELF Unavailable Unavailable Unavailable ELAN BERRY Unavailable [address] + [place] [address] BROWNS FURNITURE Unavailable [address] + [place] [address] ROCK, AMAIRANI Unavailable [address] + [place] [address] BROWN, BERRY Unavailable [address] + [place] [address] ROCK, AMAIRANI Unavailable [address] + [place] [address] SELF Unavailable Unavailable Unavailable BROWN, BERRY Unavailable [address] + [place] [address] ROCK, AMAIRANI Unavailable [address] + [place] [address] SELF Unavailable Unavailable Unavailable BROWN, BERRY Unavailable [address] + [place] [address] ROCK, AMAIRANI Unavailable [address] + [place] [address] SELF Unavailable Unavailable Unavailable BROWN, BERRY Unavailable [address] + [place] [address] RIVERVALE, AMAIRANI Unavailable [address] + [place] [address] SELF Unavailable Unavailable Unavailable BROWN, BERRY Unavailable [address] + [place] [address] BROWNS FURNITURE Unavailable [address] + [place] [address] ROCK, AMAIRANI Unavailable [address] + [place] [address] BROWN, BERRY Unavailable [address] + [place] [address] ROCK, AMAIRANI Unavailable [address] + [place] [address] SELF Unavailable Unavailable Unavailable BROWN, BERRY Unavailable [address] + [place] [address] ROCK, AMAIRANI Unavailable [address] + [place] [address] SELF Unavailable Unavailable Unavailable BROWN, BERRY Unavailable [address] + [place] [address] ROCK, AMAIRANI Unavailable [address] + [place] [address] SELF Unavailable Unavailable Unavailable BROWN, BERRY Unavailable [address] + [place] [address] RIVERVALEKLEBERH Unavailable [address] + [place] [address] SELF Unavailable Unavailable Unavailable BROWN, BERRY Unavailable [address] + [place] [address] SELF Unavailable Unavailable Unavailable BROWN, BERRY Unavailable [address] + [place] [address] SELF Unavailable Unavailable Unavailable BROWN, BERRY Unavailable [address] + [place] [address] SELF Unavailable Unavailable Unavailable BROWN, BERRY Unavailable [address] + [place] [address] SELF Unavailable Unavailable Unavailable BROWN, BERRY Unavailable [address] + [place] [address] RIVERVALEKLEBERH Unavailable [address] + [place] [address] SELF Unavailable Unavailable Unavailable ELAN, JUVENTINO Unavailable [address] + [place] [address] BROWN, BERRY Unavailable [address] + [place] [address] SELF Unavailable Unavailable Unavailable BROWN, JUVENTINO Unavailable [address] + [place] [address] BROWN, BERRY Unavailable [address] + [place] [address] SELF Unavailable Unavailable Unavailable BROWN JUVENTINO Unavailable [address] + [place] [address] BROWN, BERRY Unavailable [address] + [place] [address] SELF Unavailable Unavailable Unavailable BROWN, JUVENTINO Unavailable [address] + [place] [address] BROWN, BERRY Unavailable [address] + [place] [address] SELF Unavailable Unavailable Unavailable Brown, Berry Unavailable Unavailable + Care Team Providers Name Role Phone Gabe Beaver Attending Unavailable UNKNOWN, PROVIDER Referring Unavailable Gabe Beaver Primary Care Unavailable Moodispaw, Richie Attending Unavailable Moodispaw, Richie Referring Unavailable PETRILLA, RAMSEUR Primary Care Unavailable Moodispaw, Richie Consulting Unavailable TerrellPernell Attending Unavailable Moodispaw, Richie Referring Unavailable PETRILLA, RAMSEUR Primary Care Unavailable Moodispaw, Richie Consulting Unavailable Moodispaw, Richie Attending Unavailable PETRILLA, RAMSEUR Referring Unavailable Moodispaw, Richie Attending Unavailable PETRILLA, RAMSEUR Referring Unavailable Archie, Dakota Attending Unavailable Moodispaw, Richie Referring Unavailable Moodispaw, Richie Attending Unavailable PETRILLA, GABE Referring Unavailable Ramirez, Julia Attending Unavailable Moodispaw, Richie Attending Unavailable Moodispaw, Richie Attending Unavailable PETRILLA, RAMSEUR Primary Care Unavailable Moodispaw, Richie Referring Unavailable Moodispaw, Richie Attending Unavailable PETRILLA, GABE Referring Unavailable Ramirez, Julia Attending Unavailable Moodispaw, Richie Attending Unavailable Moodispaw, Richie Referring Unavailable PETRILLA, RAMSEUR Primary Care Unavailable Moodispaw, Richie Attending Unavailable PETRILLA, RAMSEUR Primary Care Unavailable Moodispaw, Richie Referring Unavailable Anmol Jewell D.O. Attending Unavailable Moodispaw, Richie Referring Unavailable PETRILLA, RAMSEUR Primary Care Unavailable Moodispaw, Richie Consulting Unavailable Moodispaw, Richie Attending Unavailable Moodispaw, Richie Referring Unavailable PETRILLA, RAMSEUR Primary Care Unavailable Moodispaw, Richie Consulting Unavailable Moodispaw, Richie Attending Unavailable Moodispaw, Richie Referring Unavailable Moodispaw, Richie Attending Unavailable PETRILLA, GABE Referring Unavailable Moodispaw, Richie Admitting Unavailable Moodispaw, Richie Attending Unavailable Moodispaw, Richie Referring Unavailable PETRILLA, RAMSEUR Primary Care Unavailable Moodispaw, Richie Admitting Unavailable Moodispaw, Richie Attending Unavailable Moodispaw, Richie Referring Unavailable PETRILLA, RAMSEUR Primary Care Unavailable Moodispaw, Richie Consulting Unavailable Moodispaw, Richie Admitting Unavailable Moodispaw, Richie Attending Unavailable Moodispaw, Richie Referring Unavailable PETRILLA, RAMSEUR Primary Care Unavailable Moodispaw, Richie Consulting Unavailable Moodispaw, Richie Admitting Unavailable Moodispaw, Richie Attending Unavailable Moodispaw, Richie Referring Unavailable PETRILLA, RAMSEUR Primary Care Unavailable Moodispaw, Richie Consulting Unavailable Santos Bernal Attending Unavailable PETRILLA, RAMSEUR Referring Unavailable Moodispaw, Richie Attending Unavailable Richie Rose Referring Unavailable GABE BEAVER Primary Care Unavailable Richie Rose Attending Unavailable PROBLEMS PROBLEMS DATE TYPE CONDITION / CODE ATTENDING STATUS SOURCE Unknown I48.91 - Unspecified Moodispaw, Active [facility] atrial fibrillation / [facility] I48.91(ICD-10) Hospital Repository Unknown I48.2 - Chronic atrial Archie, Dakota Active [facility] fibrillation / Community I48.2(ICD-10) Hospital Repository Unknown R94.31 - Abnormal Archie, [place] Active [facility] electrocardiogram Community [ECG] [EKG] / Hospital R94.31(ICD-10) Repository Unknown I10 - Essential Archie, [place] Active [facility] (primary) hypertension Community / I10(ICD-10) Hospital Repository Unknown 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.1 - Persistent Moodispaw, Active [place] [facility] atrial fibrillation / [facility] I48.1(ICD-10) Hospital Repository Unknown E78.5 - Moodisp[place], Active [facility] Hyperlipidemia, [facility] unspecified / Hospital E78.5(ICD-10) Repository Unknown E11.9 - Type 2 Moodispaw, Active [facility] diabetes mellitus [facility] without complications Hospital / E11.9(ICD-10) Repository Unknown G47.33 - Obstructive Moodispaw, Active [facility] sleep apnea (adult) [facility] (pediatric) / Hospital G47.33(ICD-10) Repository Admitting Palpitations / Brinda Beaver [facility] 8 Diagnosis R00.2(ICD-10) [facility] Repository PROCEDURES PROCEDURES No Procedure Records FoundRESULTS RESULTS 12 LEAD EKG PERFORMED Observed: 04/01/2018 Status: F Source: [facility] BY [facility] 11:11 AM [facility] REPOSITORY [facility] [address] [place] [address] 12 Lead EKG performed by MARY 04/01/18 1110 MR#: [id number] Acct: [id number] Name: SANTOS JEWELL Rep #: [id number] : 1945 73 From: Richie Rose MD Attending Dr: Richie Rose MD Status: [facility] Ordering Dr: Richie Rose MD Date: 04/01/18 Location: [facility] Sex: M C Admitted: BMS/12 Lead EKG performed by [facility] ECG Report Interpretation Atrial fibrillation Left axis deviationPoor R wave progressionABNORMAL Electronically signed on 04/07/2018 at 09:03 by Richie Rose [employer] Version 8610 04/07/18 0904 Date Richie Rose MD CC: Gabe Beaver DO Date Dictated: 04/01/18 1110 Date Transcribed: 04/01/18 111 Radio Time Buyer: PM Signed OPERATIVE REPORT Observed: 03/26/2018 Status: F Source: [place] 5:52 AM [facility] REPOSITORY [facility] Medical Records Department [address] [place] [address] Operative Report 03/25/18 1411 MR#: [id number] Acct: [id number] Name: SANTOS JEWELL Rep #: [id number] : 1945 73 From: Pernell Tejada MD PCP: Gabe Beaver DO Status: [facility] Y Location: [facility] Problem List (1) Atrial fibrillation Status: Chronic Qualifiers: Atrial fibrillation type: chronic Comment: DDCV 02/04/2018; (2) Hyperlipemia Status: Chronic Qualifiers: (3) Hypertension Status: Chronic Qualifiers: (4) Obstructive sleep apnea Status: Chronic (5) Type 2 diabetes mellitus Status: Chronic Operative Report Date of Procedure: 03/25/18 - Conscious sedation CONSCIOUS SEDATION REPORT BRIEF HISTORY OF PRESENT ILLNESS: The patient is a 73-year-old male who presented to [facility] for an elective outpatient cardioversion due to underlying atrial fibrillation. The patient reports no PO intake since midnight. The patient does have a history of obstructive sleep apnea. The patient reports a history of smoking, but no COPD. The patient denies any recent constitutional symptoms such as fevers, chills, nausea or vomiting. The patient denies previous anesthetic complications. Last known ejection fraction of 55% PHYSICAL EXAMINATION: VITAL SIGNS: Reviewed and were acceptable. GENERAL: The patient is a male, in no apparent distress, speaking in full sentences. HEENT: Normocephalic, atraumatic. Mucous membranes are moist and pink. Good mouth opening noted. Trachea is midline. Good neck mobility. MP IV CHEST: S1, S2 irregularly irregular. No murmurs, rubs or gallops were noted. LUNGS: Clear to auscultation bilaterally without appreciable wheezes, rales or rhonchi. ABDOMEN: Soft, nontender, nondistended. Positive bowel sounds. EXTREMITIES: There is no clubbing, cyanosis or edema. ASA Class: II DESCRIPTION OF PROCEDURE: After confirmation of informed consent, the patient's anesthesia plan was reviewed in detail. Propofol was chosen. Risks and benefits were reviewed and the patient agreed to proceed. At 11:14 AM, the patient was given 40 mg of propofol. The patient required a total of 90 mg of propofol throughout the procedure to achieve appropriate sedation. The patient achieved an appropriate level of sedation and received 1 attempt s synchronized cardioversion, at [address] Rose at the bedside. This was successful in achieving normal sinus rhythm. The patient was monitored until 11:25 AM, at which time the patient reached their baseline mental status and function. The patient tolerated the procedure well. COMPLICATIONS: None ESTIMATED BLOOD LOSS: None RECOMMENDATIONS: Okay to recover in usual fashion. Code Visit 9xxxx: Other Procedure See Report - 42024 -11 minutes conscious sedation 03/26/18 0552 <Electronically signed by Pernell Tejada MD> Date Pernell Tejada MD CC: Pernell Tejada MD; Gabe Beaver DO; Richie Rose MD Signed OPERATIVE REPORT Observed: 03/25/2018 Status: F Source: APPLE 4:21 PM [facility] REPOSITORY [facility] Medical Records Department [address] [place] [address] [place] [address] Operative Report 03/25/18 1620 MR#: [id number] Acct: [id number] Name: SANTOS JEWELL Rep #: [id number] : 1945 73 From: Richie Rose MD PCP: Gabe Beaver DO Status: DEP [facility] Y Location: [facility] Problem List (1) Atrial fibrillation Status: Chronic Qualifiers: Atrial fibrillation type: chronic Comment: DDCV 02/04/2018; Operative Report Date of Procedure: 03/25/18 Procedure: Synchronized Biphasic DC Cardioversion Indications: Trial fibrillation Consent: [Per the Patient] Anesthesia: per Dr. Tejada of pulmonology and critical care medicine with propofol 90 mg IV push total Procedure: Synchronized Biphasic DC Cardioversion: 200 J x1: Result: Sinus rhythm Complications: no apparent complications This note was generated with Automatic Agencyation software. It may contain incorrect words, spelling, and punctuation that were not noted in checking the note before signing. 03/25/18 1621 <Electronically signed by Richie Rose MD> Date Richie Rose MD CC: Gabe Beaver DO; Richie Rose MD Signed OFFICE VISIT REPORT Observed: 03/17/2018 Status: F Source: AP[place] 5:05 PM [address] [place] [address] OFFICE VISIT Date of Service: MR#: [id number] Acct: [id number] Patient: SANTOS JEWELL Rep #: [id number] : 1945 Provider: Julia Ramirez Age/Sex: 73/M Location: [facility] Status: Signed Intake Intake Visit Reasons: Amb Documentation Allergies No Known Allergies Allergy (Verified 03/11/18 14:35) Medications aspirin 81 mg tablet,delayed release 81 mg PO DAILY 01/07/18 [History Confirmed 03/11/18] esomeprazole magnesium 40 mg capsule,delayed release 40 mg PO DAILY 01/07/18 [History Confirmed 03/11/18] ranitidine 150 mg capsule 150 mg PO QHS 01/07/18 [History Confirmed 03/11/18] rivaroxaban 20 mg tablet 20 mg PO DAILY 01/07/18 [History Confirmed 03/11/18] sitagliptin 100 mg tablet 100 mg PO DAILY 01/07/18 [History Confirmed 03/11/18] Diltiazem CD [Cardizem CD] 180 mg PO DAILY cap 02/27/18 [Rx Confirmed 03/11/18] Flecainide [Tambocor] 100 mg PO BID #60 tab 02/27/18 [Rx Confirmed 03/11/18] Glimepiride [Amaryl] 4 mg PO DAILY@0800 tab 02/27/18 [Rx Confirmed 03/11/18] Lisinopril [Zestril] 20 mg PO DAILY tab 02/27/18 [Rx Confirmed 03/11/18] glimepiride 1 mg tablet 1 mg PO QPM tab 03/11/18 [History Confirmed 03/11/18] Nursing Note Patient in for DCCV teaching. Reviewed instructions with patient for procedure. Lab order given for BMP which patient will have drawn today. Patient verifies that he has been on xarelto without interruption for 6 weeks. his note was copied and pasted from a nurse note dated 01/31/18. The electronic note had not been filed accurately and is now being revised. Gisela De La Torre RN 03/17/18 5087 <Electronically signed by Julia FONTAINE> Date Julia FONTAINE [facility] Signature: Date (if applicable) CC: 12 LEAD ELECTROCARDIOGRAM Observed: 03/14/2018 Status: F Source: APPLE 9:10 AM [facility] REPOSITORY [facility] Cardiovascular Services [address] [place] [address] 12 Lead EKG 02/25/18 1133 MR#: [id number] Acct: [id number] Name: SANTOS JEWELL Rep #: [id number] : 1945 73 From: Dakota Almanza MD Attending Dr: Richie Rose MD Status: DIS ANATOLY Ordering Dr: Richie Rose MD Date: 02/25/18 Location: [facility] Sex: M C Admitted: 02/25/18 Test Reason : MED Blood Pressure : / mmHG Vent. Rate : 063 BPM Atrial Rate : 326 BPM P-R Int : 000 ms QRS Dur : 106 ms QT Int : 396 ms P-R-T Axes : 000 -43 -06 degrees QTc Int : 405 ms Atrial fibrillation Left axis deviation Abnormal ECG When compared with ECG of 25-FEB-2018 09:18, MANUAL COMPARISON REQUIRED, DATA IS UNCONFIRMED Confirmed by DAKOTA ALMANZA MD ([id number]), manuscript editor ALEX NICOLE ([id number]) on 03/03/2018 2:24:06 PM Referred By: Richie Rose Confirmed By:DAKOTA ALMANZA MD 03/03/18 142 Date Dakota Almanza MD CC: Gabe Beaver DO; Richie Rose MD Signed 12 LEAD ELECTROCARDIOGRAM Observed: 03/14/2018 Status: F Source: [place] 9:10 AM [facility] REPOSITORY [facility] Cardiovascular Services [address] [place] [place] [address] 12 Lead EKG 02/25/18917 MR#: [id number] Acct: [id number] Name: SANTOS JEWELL Rep #: [id number] : 1945 73 From: Dakota Almanza MD Attending Dr: Richie Rose MD Status: DIS ANATOLY Ordering Dr: Richie Rose MD Date: 02/25/18 Location: U Sex: M C Admitted: 02/25/18 Test Reason : MED Blood Pressure : / mmHG Vent. Rate : 087 BPM Atrial Rate : 416 BPM P-R Int : 000 ms QRS Dur : 100 ms QT Int : 364 ms P-R-T Axes : 000 -45 006 degrees QTc Int : 438 ms Atrial fibrillation Left axis deviation Abnormal ECG When compared with ECG of 04-FEB-2018 11:04, No significant change was found Confirmed by ARCHIE MD, DAKOTA ([id number]), manuscript editor ALEX NICOLE ([id number]) on 03/03/2018 2:24:35 PM Referred By: Richie Rose Confirmed By:DAKOTA ALMANZA MD 03/03/18 1424 Date Dakota Almanza MD CC: Gabe Beaver DO; Richie Rose MD Signed 12 LEAD ELECTROCARDIOGRAM Observed: 03/14/2018 Status: F Source: [place] 9:09 AM [facility] REPOSITORY [facility] Cardiovascular Services [address] [place] [address] 12 Lead EKG 02/26/18 1139 MR#: [id number] Acct: [id number] Name: SANTOS JEWELL Rep #: [id number] : 1945 73 From: Dakota Almanza MD Attending Dr: Richie Rose MD Status: DIS ANATOLY Ordering Dr: Richie Rose MD Date: 02/26/18 Location: [facility] Sex: M C Admitted: 02/25/18 Test Reason : FLECAINIDE/MED Blood Pressure : / mmHG Vent. Rate : 077 BPM Atrial Rate : 322 BPM P-R Int : 000 ms QRS Dur : 106 ms QT Int : 382 ms P-R-T Axes : 000 -49 005 degrees QTc Int : 432 ms Atrial flutter with variable A-V block Left axis deviation Abnormal ECG When compared with ECG of 26-FEB-2018 04:56, MANUAL COMPARISON REQUIRED, DATA IS UNCONFIRMED Confirmed by DAKOTA ALMANZA MD ([id number]), manuscript editor ALEX NICOLE ([id number]) on 03/03/2018 2:02:18 PM Referred By: Richie Rose Confirmed By:DAKOTA ALMANZA MD 03/03/18 1402 Date Dakota Almanza MD CC: Gabe Beaver DO; Richie Rose MD Signed 12 LEAD ELECTROCARDIOGRAM Observed: 03/14/2018 Status: F Source: AP[place] 9:09 AM [facility] REPOSITORY [facility] Cardiovascular Services [address] [place] [address] 12 Lead EKG 02/26/18 0456 MR#: [id number] Acct: [id number] Name: SANTOS JEWELL Rep #: [id number] : 1945 73 From: Dakota Almanza MD Attending Dr: Richie Rose MD Status: DIS ANATOLY Ordering Dr: Richie Rose MD Date: 02/26/18 Location: [facility] Sex: M C Admitted: 02/25/18 Test Reason : Blood Pressure : / mmHG Vent. Rate : 071 BPM Atrial Rate : 375 BPM P-R Int : 000 ms QRS Dur : 108 ms QT Int : 414 ms P-R-T Axes : 000 -48 -01 degrees QTc Int : 449 ms Atrial fibrillation Left axis deviation Abnormal ECG When compared with ECG of 25-FEB-2018 23:30, MANUAL COMPARISON REQUIRED, DATA IS UNCONFIRMED Confirmed by DAKOTA ALMANZA MD ([id number]), manuscript editor ALEX NICOLE ([id number]) on 03/03/2018 2:05:11 PM Referred By: Richie Rose Confirmed By:DAKOTA ALMANZA MD 03/03/18 1405 Date Dakota Almanza MD CC: Gabe Beaver DO; Richie Rose MD Signed 12 LEAD ELECTROCARDIOGRAM Observed: 03/14/2018 Status: F Source: APPLE 9:09 AM [facility] REPOSITORY [facility] Cardiovascular Services [address] [place] [address] 12 Lead EKG 02/25/18 2330 MR#: [id number] Acct: [id number] Name: SANTOS JEWELL Rep #: [id number] : 1945 73 From: Dakota Almanza MD Attending Dr: Richie Rose MD Status: DIS ANATOLY Ordering Dr: Richie Rose MD Date: 02/25/18 Location: PCU Sex: M C Admitted: 02/25/18 Test Reason : PCU ADMIT Blood Pressure : / mmHG Vent. Rate : 059 BPM Atrial Rate : 375 BPM P-R Int : 000 ms QRS Dur : 106 ms QT Int : 410 ms P-R-T Axes : 000 -45 -07 degrees QTc Int : 405 ms Atrial fibrillation with slow ventricular response Left axis deviation Abnormal ECG When compared with ECG of 25-FEB-2018 11:33, MANUAL COMPARISON REQUIRED, DATA IS UNCONFIRMED Confirmed by DAKOTA ALMANZA MD ([id number]), manuscript editor ALEX NICOLE ([id number]) on 03/03/2018 2:05:51 PM Referred By: Richie Rose Confirmed By:DAKOTA ALMANZA MD 03/03/18 1405 Date Dakota Almanza MD CC: Gabe Beaver DO; Richie Rose MD Signed 12 LEAD ELECTROCARDIOGRAM Observed: 03/14/2018 Status: F Source: AP[place] 9:08 AM [facility] REPOSITORY [facility] Cardiovascular Services [address] [place] [address] 12 Lead EKG 02/26/18 2256 MR#: [id number] Acct: [id number] Name: SANTOS JEWELL Rep #: [id number] : 1945 73 From: Dakota Almanza MD Attending Dr: Richie Rose MD Status: DIS ANATOLY Ordering Dr: Richie Rose MD Date: 02/26/18 Location: U Sex: M C Admitted: 02/25/18 Test Reason : MED Blood Pressure : / mmHG Vent. Rate : 059 BPM Atrial Rate : 288 BPM P-R Int : 000 ms QRS Dur : 110 ms QT Int : 412 ms P-R-T Axes : 000 -48 012 degrees QTc Int : 407 ms Atrial fibrillation with slow ventricular response Left axis deviation Abnormal ECG When compared with ECG of 26-FEB-2018 11:39, MANUAL COMPARISON REQUIRED, DATA IS UNCONFIRMED Confirmed by DAKOTA ALMANZA MD ([id number]), manuscript editor ALEX NICOLE ([id number]) on 03/03/2018 1:49:44 PM Referred By: Richie Rose Confirmed By:DAKOTA ALMANZA MD 03/03/18 1349 Date Dakota Almanza MD CC: Gabe Beaver DO; Richie Rose MD Signed 12 LEAD ELECTROCARDIOGRAM Observed: 03/14/2018 Status: F Source: APPLE 9:08 AM [facility] REPOSITORY [facility] Cardiovascular Services [address] [place] [address] 12 Lead EKG 02/27/18 0453 MR#: [id number] Acct: [id number] Name: SANTOS JEWELL Rep #: [id number] : 1945 73 From: Dakota Almanza MD Attending Dr: Richie Rose MD Status: DIS ANATOLY Ordering Dr: Richie Rose MD Date: 02/27/18 Location: [facility] Sex: M C Admitted: 02/25/18 Test Reason : AM EKG Blood Pressure : / mmHG Vent. Rate : 064 BPM Atrial Rate : 100 BPM P-R Int : 000 ms QRS Dur : 108 ms QT Int : 410 ms P-R-T Axes : 000 -50 005 degrees QTc Int : 422 ms Atrial fibrillation Left axis deviation Abnormal ECG When compared with ECG of 26-FEB-2018 22:56, MANUAL COMPARISON REQUIRED, DATA IS UNCONFIRMED Confirmed by DAKOTA ALMANZA MD ([id number]), manuscript editor ALEX NICOLE ([id number]) on 03/03/2018 1:50:18 PM Referred By: Richie Rose Confirmed By:DAKOTA ALMANZA MD 03/03/18 0860 Date Dakota Almanza MD CC: Gabe Beaver DO; Richie Rose MD Signed 12 LEAD ELECTROCARDIOGRAM Observed: 03/14/2018 Status: F Source: APPLE 9:08 AM [facility] REPOSITORY [facility] Cardiovascular Services [address] [place] [address] 12 Lead EKG 02/27/18 1120 MR#: [id number] Acct: [id number] Name: SANTOS JEWELL Rep #: [id number] : 1945 73 From: Dakota Almanza MD Attending Dr: Richie Rose MD Status: DIS ANATOLY Ordering Dr: Richie Rose MD Date: 02/27/18 Location: [facility] Sex: M C Admitted: 02/25/18 Test Reason : Blood Pressure : / mmHG Vent. Rate : 067 BPM Atrial Rate : 063 BPM P-R Int : 000 ms QRS Dur : 110 ms QT Int : 404 ms P-R-T Axes : 000 -52 006 degrees QTc Int : 426 ms Atrial fibrillation Left axis deviation Abnormal ECG When compared with ECG of 27-FEB-2018 04:53, MANUAL COMPARISON REQUIRED, DATA IS UNCONFIRMED Confirmed by ARCHIE BROWN, DAKOTA ([id number]), manuscript editor ALEX NICOLE ([id number]) on 03/03/2018 1:50:33 PM Referred By: Richie Rose Confirmed By:DAKOTA ALMANZA MD 03/03/18 1350 Date Dakota Almanza MD CC: Gabe Beaver DO; Richie Rose MD Signed CARDIOLOGY VISIT Observed: 03/11/2018 Status: F Source: [facility] REPORT 3:55 PM [facility] REPOSITORY [facility] [address] [place] [address] OFFICE VISIT Date of Service: 03/11/18 MR#: [id number] Acct: [id number] Name: SANTOS JEWELL Rep #: [id number] : 1945 Provider: MIGUELINA Bernal Age/Sex: 73/M Location: [facility] Status: Signed HPI HPI Details: SANTOS JEWELL, is a 73 M who presents to the office today for an outpatient cardiovascular follow-up. He has a history of atrial fibrillation, hypertension, hyperlipidemia, AUGUSTIN with CPAP therapy, and diabetes type 2. Office visit he underwent a nuclear stress test that was considered negative. He underwent cardioversion, which was on. He was started on anti-rhythmic medication. Pt denies chest, arm, jaw, or neck discomfort. His exercise tolerance is stable. Pt denies symptoms of CHF, palpitations, near syncopal or syncopal episodes. Pt denies edema or claudication issues. Pt. denies orthopnea, PND, fever, chills, blood in urine, blood in stool, or myalgia. He states 1-2 spells of lightheadedness and dizziness. He states feeling fatigue. Intake Vital Signs03/11/18 Height 6 ft 2 in 03/11/18 Weight: 248 lb 03/11/18 Body Mass Index (BMI) 31.8 03/11/18 Blood Pressure 108/60 Intake Visit Reasons: Update H AND P Well Head Pumper Required: No Accompanied by: None Is patient in pain?: No Allergies No Known Allergies Allergy (Verified 03/11/18 14:35) Medications aspirin 81 mg tablet,delayed release 81 mg PO DAILY 01/07/18 [History Confirmed 03/11/18] esomeprazole magnesium 40 mg capsule,delayed release 40 mg PO DAILY 01/07/18 [History Confirmed 03/11/18] ranitidine 150 mg capsule 150 mg PO QHS 01/07/18 [History Confirmed 03/11/18] rivaroxaban 20 mg tablet 20 mg PO DAILY 01/07/18 [History Confirmed 03/11/18] sitagliptin 100 mg tablet 100 mg PO DAILY 01/07/18 [History Confirmed 03/11/18] Diltiazem CD [Cardizem CD] 180 mg PO DAILY cap 02/27/18 [Rx Confirmed 03/11/18] Flecainide [Tambocor] 100 mg PO BID #60 tab 02/27/18 [Rx Confirmed 03/11/18] Glimepiride [Amaryl] 4 mg PO DAILY@0800 tab 02/27/18 [Rx Confirmed 03/11/18] Lisinopril [Zestril] 20 mg PO DAILY tab 02/27/18 [Rx Confirmed 03/11/18] glimepiride 1 mg tablet 1 mg PO QPM tab 03/11/18 [History Confirmed 11/27/18] Ejection fraction %: 55 to 59 PFSH Medical History Atrial fibrillation (Chronic) Hyperlipemia (Chronic) Hypertension (Chronic) Type 2 diabetes mellitus (Chronic) GERD (gastroesophageal reflux disease) (Chronic) History of prostate cancer (Chronic) AUGUSTIN (obstructive sleep apnea) (Chronic) Surgical History History of hernia repair (Resolved) History of lithotripsy (Resolved) History of prostatectomy (Resolved) Family History Mother Diabetes Father Myocardial infarction, Onset Age: 69 CAD (coronary artery disease) Brother Diabetes Social History Smoking Status: Former smoker how long ago did patient quit smokin years ago alcohol intake: current alcohol intake frequency: 0-2 drinks per day Alcohol type: beer, wine, hard liquor caffeine: Yes Type: coffee Number of servings: 3 ROS Const Const: Positive for fatigue; negative for weakness, body ache, fever(s) or chills ENT ENT: Positive for dizziness Cardio Chest Pain: No Palpitations: No Edema: None Muscle aches with walking: None Resp Respiratory: Negative for SOB with activity, SOB at rest, SOB orthopnea\SOB lying down or paroxysmal nocturnal dyspnea GI GI: Negative nausea, black,tarry stools, bright, red blood in stools or vomiting blood/hematemesis : Negative for hematuria or frequent nighttime urination/ nocturia Musc Musc: Negative for muscle aches/ myalgia Skin Skin: Negative non-healing lesions or rash Neuro Neuro: Positive for lightheadedness and dizziness; negative for near syncope, syncope, orthostatic symptoms or weakness Endo Endo: Positive for fatigue Allergy Allergy/Immunology: Negative for rash Cardiology Exam Const Appearance: cooperative, healthy appearing, comfortable, no acute distress, well developed and well groomed Nutritional Appearance: obese Orientation: alert, awake and oriented x3 Head Head: normal to inspection, normocephalic and atraumatic Ears: hearing grossly normal bilaterally Nose: external nose normal Face and Sinus: face symmetric Mouth: oral mucosae normal Teeth and gingiva: fair dentition Eyes Eyelids: eyelids normal Conjunctivae: conjunctivae normal Pupils: PERRL EOM: EOM intact bilaterally Neck Neck: normal visual inspection, full ROM and no lymphadenopathy Carotids: normal carotid upstroke Chest Chest inspection: normal inspection of the chest, symmetric chest movement and normal respiratory effort Auscultation: Bilateral: Clear to Auscultation Cardio Palpation: normal PMI Rhythm: irregular rhythm Heart sounds: S1 normal and S2 normal; negative rub, gallop or murmur GI GI: normal to inspection, bowel sounds present, soft and obese Neuro General: alert, awake and oriented x3 Skin Skin: no rashes or lesions noted Extremities Pulses: Normal: Right Radial Pulse, Left Radial Pulse Lower Extremity Edema: None: Bilateral Psych Psychological: normal affect Supplemental Info Echocardiogram from 2017 showed ejection fraction 55% and normal left atrium and right atrium size. Stress test from January 2018 showed peak ECG with no obvious ECG changes and nuclear images negative for stress-induced myocardial ischemia or previous myocardial injury/infarction with ejection fraction of 69%. Assessment AND Plan 1. Chronic atrial fibrillation I48.2 DDCV 02/04/2018; Plan His ECG in office showed atrial fibrillation with a controlled response. Patient's echocardiogram and September 2017 showed ejection fraction 55% and normal left and right atrium size. His stress test January 2018 was negative for stress- induced myocardial ischemia. He underwent a cardioversion on 02/04/2018 that was unsuccessful. He started antiarrhythmic medication/flecainide and will undergo repeat cardioversion. Hopefully this improves his overall fatigue. He denies any disruption or discontinuation of his factor Xa inhibitor. He will continue current medications. 2. Essential hypertension I10 Plan Patient's blood pressure is well-controlled today in the office. We will continue to monitor this. We will not make any medication regimen changes. 3. Pure hypercholesterolemia E78.00; E78.0 Plan Lipid panel from February 2018 showed cholesterol: 169, HDL: 44, LDL: 96, triglycerides: 146. He is not on any cholesterol lowering medication. We will continue to monitor. Plan Detail Other Orders Orders: Additional Comments Thank you for allowing us to participate in the patients plan of care, if you have any questions please do not hesitate to call. This note was generated using a voice recognition system and there may be incorrect words, spelling or punctuation that were not noted when reviewing the office note prior to saving. Coding Level of Care Code Off vis,est,level 3 Diagnoses Chronic atrial fibrillation I48.2 Atrial fibrillation type: chronic Essential hypertension I10 Hypertension type: essential hypertension Pure hypercholesterolemia E78.00; E78.0 Hyperlipidemia type: pure hypercholesterolemia Coding Level of Care Code Off vis,est,level 3 Diagnoses Chronic atrial fibrillation I48.2 Atrial fibrillation type: chronic Essential hypertension I10 Hypertension type: essential hypertension Pure hypercholesterolemia E78.00; E78.0 Hyperlipidemia type: pure hypercholesterolemia 03/11/18 1555 <Electronically signed by Santos MELARAC> Date Santos Bernal OFFAL BALER-C Cosigner Signature: Date (if applicable) CC: DELORES Beaver 12 LEAD EKG PERFORMED Observed: 03/11/2018 Status: F Source: [facility] BY [facility] 2:47 PM [facility] REPOSITORY [address] [place] [address] 12 Lead EKG performed by [facility] 03/11/181445 MR#: [id number] Acct: [id number] Name: SANTOS JEWELL Rep #: [id number] : 1945 73 From: Santos W[place] Attending Dr: Santos Bernal NP Status: DEP AMB Ordering Dr: Santos BernalC Date: 03/11/18 Location: [facility] Sex: M C Admitted: [facility]/12 Lead EKG performed by [facility] ECG Report Interpretation Atrial flutter-fibrillation Left axis deviationPoor R wave progressionABNORMAL Electronically signed on 03/12/2018 at 18:06 by Richie Rose Software Version [id number] 03/12/18 1808 Date Santos WASHINGTON CC: DELORES Beaver Date Dictated: 03/11/18 144 Date Transcribed: 03/11/181445 Radio Time Buyer: BOBY Signed DISCHARGE SUMMARY Observed: 02/27/2018 Status: F Source: [facility] 3:39 PM [facility] REPOSITORY [facility] Medical Records Department [address] [place] [address] Discharge Summary 02/27/18 1535 MR#: [id number] Acct: [id number] Name: SANTOS JEWELL Rep #: [id number] : 1945 73 From: Richie Rose MD PCP: DELORES Baca Status: ADM ANATOLY Y Location: [place] [address] Discharge Date and Diagnosis - Problem List Patient Problems: Active and Suspected Problems (Last Reviewed 01/09/18 @ 11:20 by Julia Ramirez) Encounter for monitoring anti-arrhythmic therapy (Acute) Date of Admission: 02/25/18 Date of Discharge: 02/27/18 - Primary Discharge Diagnosis Active and Suspected Problems (Last Reviewed 01/09/18 @ 11:20 by Julia Ramirez) Encounter for monitoring anti-arrhythmic therapy (Acute) - Secondary Discharge Diagnosis Chronic Problems (Last Reviewed 01/09/18 @ 11:20 by Julia Ramirez) Obstructive sleep apnea (Chronic) Atrial fibrillation (Chronic) Hyperlipemia (Chronic) Hypertension (Chronic) Type 2 diabetes mellitus (Chronic) Hospital Course and Treatment Summary of Care Provided: The patient is a 73 year old white male with a past medical history of atrial fibrillation. He was admitted to [facility] for antiarrhythmic medication monitoring with flecainide/tambocor. During the admission he had continued cardiac rhythm monitoring, ECG follow up, and laboratory follow up. He remained stable with no adverse events. He was released on 02/27/2018 for continued outpatient cardiology follow up with consideration for future repeat DC cardioversion (on antiarrhythmic therapy). [] Patient Problems: Active and Suspected Problems (Last Reviewed 01/09/18 @ 11:20 by Julia Ramirez) Encounter for monitoring anti-arrhythmic therapy (Acute) Subjective: This is a 73 yo white male who appears in no acute distress. - Physical Exam General: Alert, Oriented x3, Cooperative, No apparent distress HEENT: Atraumatic, PERRLA, EOMI, Normocephalic Oral: Moist Mucosa Neck: Supple, No JVD Lungs: Clear to auscultation Cardiovascular: Normal S1, Normal S2, Irregular Rate Abdomen: Bowel Sounds Present, Soft, Non Tender Extremities: No clubbing, No cyanosis, No edema Neurological: Neuro grossly intact Psych/Mental Status: Normal Affect Vital Signs Temp Pulse Resp BP Pulse Ox 97.5 F L 74 18 117/73 97 02/27/18 14:55 02/27/18 14:55 02/27/18 14:55 02/27/18 14:55 02/27/18 14:55 Oxygen Delivery Method Room Air Weight: 240 lb Body Mass Index (BMI) 30.8 Intake and Output for Last 24 Hours Intake Total 580 / 580 1580 / 1580 620 / 620 Output Total 2 / 2 Balance 578 / 578 1580 / 1580 620 / 620 Laboratory Tests Past 24 Hrs Sodium 137 Potassium 4.3 Chloride 102 Carbon Dioxide 24.0 Anion Gap 11 POC Glucose POC Glucose 258 H 236 H 230 H Discharge Activity: Return to Normal Activity May resume sexual activity in: No Restrictions Call your doctor if you observe: Dizziness, Fainting spells Home Medications: Medications to take at Discharge aspirin 81 mg tablet,delayed release 81 mg PO DAILY 01/07/18 diltiazem ER 180 mg capsule,24 hr,extended release 180 mg PO DAILY 01/07/18 esomeprazole magnesium 40 mg capsule,delayed release 40 mg PO DAILY 01/07/18 glimepiride 4 mg tablet 2 mg PO BIDCM 01/07/18 lisinopril 20 mg tablet 20 mg PO DAILY 01/07/18 ranitidine 150 mg capsule 150 mg PO QHS 01/07/18 rivaroxaban 20 mg tablet 20 mg PO DAILY 01/07/18 sitagliptin 100 mg tablet 100 mg PO DAILY 01/07/18 Glimepiride [Amaryl] 2 mg PO QHS 02/25/18 Aspirin [Aspirin, Baby] 81 mg PO DAILY@0800 tab.chew 02/27/18 Diltiazem CD [Cardizem CD] 180 mg PO DAILY capsule 02/27/18 Flecainide [Tambocor] 100 mg PO BID #60 tablet 02/27/18 Glimepiride [Amaryl] 4 mg PO DAILY@0800 tablet 02/27/18 Linagliptin [Tradjenta] 5 mg PO DAILY tablet 02/27/18 Lisinopril [Zestril] 20 mg PO DAILY tablet 02/27/18 Pantoprazole Sodium [Protonix] 40 mg PO DAILY tablet 02/27/18 Rivaroxaban [Xarelto] 15 mg PO DAILY@1700 tablet 02/27/18 Following Prescrptions Were Given to Patient: Flecainide [Tambocor] 100 mg PO BID #60 tablet Primary Care Physician: Gabe Beaver [Primary Care Provider] - Please Follow Up With: Richie Rose MD When: [facility] to contact the patient and arrange outpatient follow up Minutes spent on discharge:: 30 Patient Condition:: Stable Medical Necessity - Tobacco Use Smoking Status: Former smoker Meaningful Use Info Meaningful Use Diagnoses (Choose all that apply): None applicable 02/27/18 1539 <Electronically signed by Richie Rose MD> Date Richie Rose MD Cosigner Signature (if applicable): Date CC: DELORES Beaver; Richie Rose MD Signed DISCHARGE INSTRUCTION Observed: 02/27/2018 Status: F Source: [facility] 3:35 PM [facility] REPOSITORY [facility] Medical Records Department [address] [place] [address] Instructions for Home/Discharge Instructions 02/27/181532 MR#: [id number] Acct: [id number] Name: SANTOS JEWELL Rep #: [id number] : 1945 73 From: Richie Rose MD PCP: DELORES Baca Status: ADM ANATOLY - Discharge Diagnoses Current Active Problems: Current Active and Chronic Problems (Last Reviewed 01/09/18 @ 11:20 by Julia Ramirez) Encounter for monitoring anti-arrhythmic therapy (Acute) Obstructive sleep apnea (Chronic) You will use the following diet at home:: Calorie/Carbohydrate Controlled (specify 1200, 1400, etc), Cardiac Your food should be the consistency of: Regular Discharge Activity: Return to Normal Activity May resume sexual activity in: No Restrictions Call your doctor if you observe: Dizziness, Fainting spells Allergies/Adverse Reactions: Allergies No Known Allergies Allergy (Verified 02/11/18 10:28) Medications to take at Discharge aspirin 81 mg tablet,delayed release 81 mg PO DAILY 01/07/18 diltiazem ER 180 mg capsule,24 hr,extended release 180 mg PO DAILY 01/07/18 esomeprazole magnesium 40 mg capsule,delayed release 40 mg PO DAILY 01/07/18 glimepiride 4 mg tablet 2 mg PO BIDCM 01/07/18 lisinopril 20 mg tablet 20 mg PO DAILY 01/07/18 ranitidine 150 mg capsule 150 mg PO QHS 01/07/18 rivaroxaban 20 mg tablet 20 mg PO DAILY 01/07/18 sitagliptin 100 mg tablet 100 mg PO DAILY 01/07/18 Glimepiride [Amaryl] 2 mg PO QHS 02/25/18 Aspirin [Aspirin, Baby] 81 mg PO DAILY@0800 tab.chew 02/27/18 Diltiazem CD [Cardizem CD] 180 mg PO DAILY capsule 02/27/18 Flecainide [Tambocor] 100 mg PO BID #60 tablet 02/27/18 Glimepiride [Amaryl] 4 mg PO DAILY@0800 tablet 02/27/18 Linagliptin [Tradjenta] 5 mg PO DAILY tablet 02/27/18 Lisinopril [Zestril] 20 mg PO DAILY tablet 02/27/18 Pantoprazole Sodium [Protonix] 40 mg PO DAILY tablet 02/27/18 Rivaroxaban [Xarelto] 15 mg PO DAILY@1700 tablet 02/27/18 The following prescriptions were given: Flecainide [Tambocor] 100 mg PO BID #60 tablet Primary Care Physician: Gabe Beaver [Primary Care Provider] - Test Results: Test results from this visit will be discussed in further detail at your follow-up appointment, if applicable. Please Follow Up With: Richie Rose MD When: [facility] to contact the patient and arrange outpatient follow up 02/27/18 4194 <Electronically signed by Richie Rose MD> Date Richie Rose MD CC: DELORES Beaver BEDSIDE GLUCOSE Collected: 02/27/2018 Status: F Source: APPLE 11:23 AM [facility] REPOSITORY TYPE CODE TESTS RESULT OUT OF REFERENCE UNITS RANGE LAB L501.080 70-110 mg/dL High BEDSIDE GLU 258 Result Comment: MANAGEMENT OF PATIENT CARE PER NURSING PROTOCOL Performed By: #### L501.080 #### [facility] [place] [address] BASIC METABOLIC Collected: 02/27/2018 Status: F Source: APPLE PROFILE (BMP) 5:55 AM [facility] REPOSITORY TYPE CODE TESTS RESULT OUT OF RANGE REFERENCE UNITS LAB L501.0100 74-106 mg/dL High GLU 224 Result Comment: Glucose result greater than or equal to 200 mg/dL suggests DIABETES MELLITUS per A.D.A. criteria. Please note revised GLUCOSE reference range effective 2017. LAB L501.1000 7-18 mg/dL High BUN 24 LAB L501.1100 0.70-1.30 mg/dL High CREAT,SERUM 1.40 Result Comment: The validity of the calculated GFR AND GFRAA in patients over 70 years has not been determined. Clinical correlation is essential. LAB L501.1110 >60 mL/min Low EST GFR 53 Result Comment: Non- GFR Calc LAB L501.1115 >60 mL/min Normal EST GFR - AA 64 Result Comment: GFR Calc LAB L501.1255 ml/min Normal Estimated CRCL 53.01 LAB L501.1300 10-20 RATIO Normal BUN/CRE 17.1 LAB L501.2200 8.5-10 mg/dL Normal .1 CA 9.2 LAB L501.5300 136-14 mmol/L Normal 5 NA 137 LAB L501.5600 3.5-5. mmol/L Normal 1 K 4.3 LAB L501.5900 98-107 mmol/L Normal CL 102 LAB L501.6100 21.0-3 mmol/L Normal 2.0 CO2 24.0 LAB L501.6200 5-15 Normal GAP 11 Performed By: #### L500.2500 #### [facility] [address] [place], [place], [address] BEDSIDE GLUCOSE Collected: 02/26/2018 Status: F Source: APPLE 9:07 PM [facility] REPOSITORY TYPE CODE TESTS RESULT OUT OF REFERENCE UNITS RANGE LAB L501.080 70-110 mg/dL High BEDSIDE GLU 236 Result Comment: MANAGEMENT OF PATIENT CARE PER NURSING PROTOCOL Performed By: #### L501.080 #### [facility] Point of Care [address] [place] [address] BEDSIDE GLUCOSE Collected: 02/26/2018 Status: F Source: APPLE 4:22 PM [facility] REPOSITORY TYPE CODE TESTS RESULT OUT OF REFERENCE UNITS RANGE LAB L501.080 70-110 mg/dL High BEDSIDE GLU 230 Result Comment: MANAGEMENT OF PATIENT CARE PER NURSING PROTOCOL Performed By: #### L501.080 #### [facility] Point of Care [address] [place] [address] BEDSIDE GLUCOSE Collected: 02/26/2018 Status: F Source: APPLE 11:33 AM [facility] REPOSITORY TYPE CODE TESTS RESULT OUT OF REFERENCE UNITS RANGE LAB L501.080 70-110 mg/dL High BEDSIDE GLU 275 Result Comment: MANAGEMENT OF PATIENT CARE PER NURSING PROTOCOL Performed By: #### L501.080 #### [facility] Point of Care [address] [place] [address] BEDSIDE GLUCOSE Collected: 02/26/2018 Status: F Source: APPLE 7:05 AM [facility] REPOSITORY TYPE CODE TESTS RESULT OUT OF REFERENCE UNITS RANGE LAB L501.080 70-110 mg/dL High BEDSIDE GLU 240 Result Comment: MANAGEMENT OF PATIENT CARE PER NURSING PROTOCOL Performed By: #### L501.080 #### [facility] Point of Care [address] [place] [address] BASIC METABOLIC Collected: 02/26/2018 Status: F Source: APPLE PROFILE (BMP) 5:25 AM [facility] REPOSITORY Order Comment: Comments: Fasting Lipid Profile TYPE CODE TESTS RESULT OUT OF RANGE REFERENCE UNITS LAB L501.0100 74-106 mg/dL High GLU 221 Result Comment: Glucose result greater than or equal to 200 mg/dL suggests DIABETES MELLITUS per A.D.A. criteria. Please note revised GLUCOSE reference range effective 2017. LAB L501.1000 7-18 mg/dL High BUN 22 LAB L501.1100 0.70-1.30 mg/dL High CREAT,SERUM 1.32 Result Comment: The validity of the calculated GFR AND GFRAA in patients over 70 years has not been determined. Clinical correlation is essential. LAB L501.1110 >60 mL/min Low EST GFR 56 Result Comment: Non- GFR Calc LAB L501.1115 >60 mL/min Normal EST GFR - AA 68 Result Comment: GFR Calc LAB L501.1255 ml/min Normal Estimated CRCL 56.22 LAB L501.1300 10-20 RATIO Normal BUN/CRE 16.7 LAB L501.2200 8.5-10 mg/dL Normal .1 CA 9.0 LAB L501.5300 136-14 mmol/L Normal 5 NA 139 LAB L501.5600 3.5-5. mmol/L Normal 1 K 4.1 LAB L501.5900 98-107 mmol/L Normal CL 104 LAB L501.6100 21.0-3 mmol/L Normal 2.0 CO2 26.0 LAB L501.6200 5-15 Normal GAP 9 Performed By: #### L500.2500, L500.4100 #### [facility] [address] [place], [address] LIPID PROFILE Collected: 02/26/2018 Status: F Source: [place] 5:25 AM [facility] REPOSITORY Order Comment: Comments: Fasting Lipid Profile TYPE CODE TESTS RESULT OUT OF RANGE REFERENCE UNITS LAB L501.4900 200 mg/dL Normal CHOL 169 Result Comment: <200 mg/dL Desirable 200-240 mg/dL Borderline >240 mg/dL High Risk LAB L501.5000 mg/dL Normal TRIG 146 Result Comment: The drugs N-Acetylcysteine and Metamizole may falsely depress this assay. Serum Triglycerides Reference Interval Normal <150 mg/dL Borderline high 150 - 199 mg/dL High 200 - 499 mg/dL Very High > or = 500 mg/dL LAB L501.6400 mg/dL Normal HDL 44 Result Comment: The drugs N-Acetylcysteine and Metamizole may falsely depress this assay. Reference Range HDL <40 mg/dL Low HDL Cholesterol HDL >or= 60 mg/dL High HDL Cholesterol LAB L501.6500 0-130 mg/dL Normal LDL 96 LAB L501.6600 5-40 mg/dL Normal VLDL 29 Performed By: #### L500.2500, L500.4100 #### [facility] [address] [place], [address] BEDSIDE GLUCOSE Collected: 02/25/2018 Status: F Source: [place] 9:38 PM [facility] REPOSITORY TYPE CODE TESTS RESULT OUT OF REFERENCE UNITS RANGE LAB L501.080 70-110 mg/dL High BEDSIDE GLU 279 Result Comment: MANAGEMENT OF PATIENT CARE PER NURSING PROTOCOL Performed By: #### L501.080 #### [facility] Point of Care [address] [place] [address] HISTORY AND PHYSICAL Observed: 02/25/2018 Status: F Source: [facility] EXAM 5:09 PM [facility] REPOSITORY [facility] Medical Records Department [address] [place] [address] History and Physical 02/25/18 1700 MR#: [id number] Acct: [id number] Name: SANTOS JEWELL Rep #: [id number] : 1945 73 From: Richie Rose MD PCP: DELORES Baca Status: ADM ANATOLY Y Location: [place] [address] Problem List (1) Encounter for monitoring anti-arrhythmic therapy Status: Acute (2) Atrial fibrillation Status: Chronic Qualifiers: (3) Hyperlipemia Status: Chronic Qualifiers: (4) Hypertension Status: Chronic Qualifiers: (5) Type 2 diabetes mellitus Status: Chronic (6) Obstructive sleep apnea Status: Chronic History of Present Illness Date of Admission: 02/25/18 The patient is a 73 year old white male with a past cardiovascular history which has included underlying atrial fibrillation, hyperlipidemia, hypertension, diabetes mellitus, and obstructive sleep apnea (followed by Dr. Farnsworth), who presents for antiarrhythmic medication initiation/monitoring. He has undergone evaluation for his atrial dysrhythmia. He had a transthoracic echocardiogram performed on 09/19/2017 at [facility] in [place], [place]. According to report the left ventricle was normal with an LVEF of 55%. The atria were normal size. There was no MR. There was mild AI. There was trivial TR and WA. He also subsequently underwent evaluation with a pharmacologic stress nuclear imaging study at [facility]. This was considered negative for evidence of inducible myocardial ischemia. He underwent an attempt at synchronized biphasic DC cardioversion on 02/04/2018. He was able to regain sinus rhythm but not maintain sinus rhythm. He presents today for initiation of antiarrhythmic therapy. He states he is doing well. He denies any ongoing chest discomfort or difficulty breathing at this time. There has been no ongoing potation or rapid rate sensations. There has been no near syncope or syncope. [] Past Medical History Allergies/Adverse Reactions: Allergies No Known Allergies Allergy (Verified 02/11/18 10:28) Home Medications: Ambulatory Orders Medication Instructions Recorded aspirin 81 mg tablet,delayed 81 mg PO DAILY 01/07/18 release diltiazem ER 180 mg capsule,24 180 mg PO DAILY 01/07/18 Past Medical History (Chronic Problems): Chronic Problems (Last Reviewed 01/09/18 @ 11:20 by Julia Ramirez) Obstructive sleep apnea (Chronic) Atrial fibrillation (Chronic) Hyperlipemia (Chronic) Hypertension (Chronic) Type 2 diabetes mellitus (Chronic) Lives: Spouse/ Significant Other Smoking Status: Former smoker Alcohol: None Drugs: None Review of Systems - Review of Systems General: Denies: Fever, Night Sweats, Fatigue Cardiovascular: Denies: Chest Discomfort, Shortness of Breath, Orthopnea, PND, Peripheral Edema, Palpitations, Lightheadedness, Dizziness, Near Syncope, Syncope Respiratory: Denies: Cough, Sputum Production, Hemoptysis Gastrointestinal: Denies: Hematemesis, Hematochezia, Melena Genitourinary: Denies: Dysuria, Hematuria Skin: Denies: Rash Subjectve: This is a 73-year-old white male who appears to be resting comfortably at the moment in no acute distress. Objective: Vital Signs Temp Pulse Resp BP Pulse Ox 97.7 F L 68 16 117/72 95 02/25/18 15:18 02/25/18 15:18 02/25/18 15:18 02/25/18 15:18 02/25/18 15:18 Oxygen Delivery Method Room Air Weight: 240 lb Body Mass Index (BMI) 30.8 Intake and Output for Last 24 Hours Intake Total 100 / 100 Balance 100 / 100 General: Awake, Alert, Oriented x 3, Cooperative, No Acute Distress HEENT: Atraumatic, Normocephalic, PERRL, EOMI, Sclera Non Icteric Oral: Moist Mucosa Neck: Supple, Good ROM, No JVD Lungs: Clear to auscultation Cardiovascular: Irregular Rhythm, Normal S1, Normal S2 Vascular: No Carotid Bruits Abdomen: Bowel Sounds Present, Soft, Non Tender Extremities: No Cyanosis, No Clubbing, No edema Neurological: No Focal Motor or Sensory Deficit Psych/Mental Status: Appropriate, Normal Affect VTE Information - Inpt Only VTE Present on Admission: No VTE Mechan Device Prophylaxis: None VTE Pharm Prophylaxis ordered?: No Reason prophylaxis not ordered:: Treatment Not Indicated - Patient on oral systemic anticoagulant therapy 02/25/18 09:15: WBC 5.6, RBC 4.55 L, Hgb 15.0, Hct 44.6, MCV 98.0 H, MCH 33.0 H, MCHC 33.6, RDW 13.7, RDW Differential 48.3 H, Plt Count 127 L, MPV 10.4 02/25/18 09:15: Sodium 137, Potassium 4.7, Chloride 106, Carbon Dioxide 23.0, Anion Gap 8, BUN 24 H, Creatinine 1.88 H, Est GFR (MDRD) Af Amer 45 L, Est GFR (MDRD) Non-Af 37 L, BUN/Creatinine Ratio 12.8, Glucose 307 H, Calcium 8.8, Magnesium 1.8, Total Bilirubin 1.10 H Rhythm: Atrial fibrillation EKG: Atrial fibrillation; left axis deviation; poor R wave progression ECHO: As noted above Stress Test: As noted above Assessment/Plan 1. Antiarrhythmic medication initiation and monitoring The patient is admitted for antiarrhythmic medication initiation and monitoring. He is going to continue rate control therapy and anticoagulant therapy. He is being started on antiarrhythmic therapy with flecainide/Tambocor. He will need to be monitored in the hospital for a minimum of 4 doses of antiarrhythmic therapy. Depending upon his clinical course he will need to be considered for a reattempt at regaining sinus rhythm, if he does not have spontaneous conversion, with a repeat synchronized biphasic DC cardioversion. Also if he tolerates his antiarrhythmic without any obvious events he will need to be considered for future exercise tolerance test to evaluate his cardiac rate/rhythm response to his antiarrhythmic therapy. 2. Atrial fibrillation Again he will continue to be monitored. He will initiate medical management as noted above. He will proceed with additional evaluation care as deemed appropriate. 3. Hyperlipidemia He will continue risk factor evaluation and care as deemed appropriate. 4. Hypertension His blood pressure will be followed. He will continue medical management with adjustment as needed. 5. Diabetes mellitus He will continue medical management and follow-up as deemed appropriate. 6. Obstructive sleep apnea He will continue to follow with his natural fabricator for his AUGUSTIN. Comment: The above was discussed and reviewed with patient. He was agreeable to this approach. This note was generated with Automatic Agencyation software. It may contain incorrect words, spelling, and punctuation that were not noted in checking the note before signing. 02/25/18 1284 <Electronically signed by Richie Rose MD> Date Richie Rose MD Cosigner Signature: Date (if applicable) CC: DELORES Beaver; Richie Rose MD Signed BEDSIDE GLUCOSE Collected: 02/25/2018 Status: F Source: APPLE 11:29 AM [facility] REPOSITORY TYPE CODE TESTS RESULT OUT OF REFERENCE UNITS RANGE LAB L501.080 70-110 mg/dL High BEDSIDE GLU 250 Result Comment: MANAGEMENT OF PATIENT CARE PER NURSING PROTOCOL Performed By: #### L501.080 #### [facility] [place] [address] CBC-COMPLETE BLOOD CNT Collected: 02/25/2018 Status: F Source: AP[facility] NO DIFF 9:15 AM [facility] REPOSITORY TYPE CODE TESTS RESULT OUT OF RANGE REFERENCE UNITS LAB L100.1000 4.4-11.0 K/mm3 Normal WBC 5.6 LAB L100.1200 4.6-6.2 M/mm3 Low RBC 4.55 LAB L100.1300 13.0-16.5 g/dl Normal HGB 15.0 LAB L100.1400 40-54 % Normal HCT 44.6 LAB L100.1500 80-94 fL High MCV 98.0 LAB L100.1600 27.0-32.0 pg High MCH 33.0 LAB L100.1700 32-36 g/gl Normal MCHC 33.6 LAB L100.1810 11.6-14.6 % Normal RDW CV 13.7 LAB L100.1820 35.1-43.9 fl High RDW SD 48.3 LAB L100.1900 150-450 K/mm3 Low PLT 127 LAB L100.2000 6.2-12.0 fl Normal MPV 10.4 Performed By: #### L100.0500 #### [facility] [address] [place], [address] COMPREHENSIVE METABOLIC Collected: 02/25/2018 Status: F Source: [facility] 9:15 AM [facility] REPOSITORY TYPE CODE TESTS RESULT OUT OF RANGE REFERENCE UNITS LAB L501.0100 74-106 mg/dL High GLU 307 Result Comment: Glucose result greater than or equal to 200 mg/dL suggests DIABETES MELLITUS per A.D.A. criteria. Please note revised GLUCOSE reference range effective 2017. LAB L501.1000 7-18 mg/dL High BUN 24 LAB L501.1100 0.70-1.30 mg/dL High CREAT,SERUM 1.88 Result Comment: The validity of the calculated GFR AND GFRAA in patients over 70 years has not been determined. Clinical correlation is essential. LAB L501.1110 >60 mL/min Low EST GFR 37 Result Comment: Non- GFR Calc LAB L501.1115 >60 mL/min Low EST GFR - AA 45 Result Comment: GFR Calc LAB L501.1255 ml/min Normal Estimated CRCL 39.47 LAB L501.1300 10-20 RATIO Normal BUN/CRE 12.8 LAB L501.1500 6.4-8. g/dL Normal 2 T PROT 6.9 LAB L501.1800 3.2-5. g/dL Normal 0 ALB 3.5 LAB L501.1950 2.2-4. g/dL Normal 2 GLOB 3.4 LAB L501.2000 0.9-2. RATIO Normal 4 A/G 1.0 LAB L501.2200 8.5-10 mg/dL Normal .1 CA 8.8 LAB L501.4100 15-37 U/L Normal AST 24 LAB L501.4305 45-117 U/L Normal ALK P 51 LAB L501.4405 16-61 U/L Normal ALT 54 LAB L501.4600 0.20-1 mg/dL High .00 T BILI 1.10 LAB L501.5300 136-14 mmol/L Normal 5 NA 137 LAB L501.5600 3.5-5. mmol/L Normal 1 K 4.7 LAB L501.5900 98-107 mmol/L Normal CL 106 LAB L501.6100 21.0-3 mmol/L Normal 2.0 CO2 23.0 LAB L501.6200 5-15 Normal GAP 8 Performed By: #### L500.4050, L501.5200 #### [facility] [address] [place], [address] MAGNESIUM Collected: 02/25/2018 Status: F Source: APPLE 9:15 AM [facility] REPOSITORY TYPE CODE TESTS RESULT OUT OF RANGE REFERENCE UNITS LAB L501.5200 1.6-2.6 mg/dL Normal MG 1.8 Performed By: #### L500.4050, L501.5200 #### [facility] [address] [place], [address] THYROID STIM HORMONE Collected: 02/25/2018 Status: F Source: AP[facility] (TSH) 9:15 AM [facility] REPOSITORY TYPE CODE TESTS RESULT OUT OF RANGE REFERENCE UNITS LAB L501.9520 0.358-3.74 uIU/mL Normal TSH 1.20 Performed By: #### L501.9520 #### [facility] [address] [place], [address] CARDIOLOGY VISIT Observed: 02/14/2018 Status: F Source: APPLE REPORT 1:28 PM [facility] REPOSITORY [facility] [address] [place] [address] OFFICE VISIT Date of Service: 02/11/18 MR#: [id number] Acct: [id number] Name: SANTOS JEWELL Rep #: [id number] : 1945 Provider: Richie Rose MD Age/Sex: 73/M Location: [facility] Status: Signed HPI HPI Details: SANTOS JEWELL, is a 73 M who presents to the office today for Intake Vital Signs02/11/18 Height 6 ft 2 in 02/11/18 Weight: 247 lb Intake Visit Reasons: 1 WK EKG POST DCCV Allergies No Known Allergies Allergy (Verified 02/11/18 10:28) Medications aspirin 81 mg tablet,delayed release 81 mg PO DAILY 01/07/18 [History Confirmed 02/11/18] diltiazem ER 180 mg capsule,24 hr,extended release 180 mg PO DAILY 01/07/18 [History Confirmed 02/11/18] esomeprazole magnesium 40 mg capsule,delayed release 40 mg PO DAILY 01/07/18 [History Confirmed 02/11/18] glimepiride 4 mg tablet 4 mg PO QAM 01/07/18 [History Confirmed 02/11/18] lisinopril 20 mg tablet 20 mg PO DAILY 01/07/18 [History Confirmed 02/11/18] ranitidine 150 mg capsule 150 mg PO DAILY 01/07/18 [History Confirmed 02/11/18] rivaroxaban 20 mg tablet 20 mg PO DAILY 01/07/18 [History Confirmed 02/11/18] sitagliptin 100 mg tablet 100 mg PO DAILY 01/07/18 [History Confirmed 02/11/18] zaleplon 10 mg capsule 10 mg PO DAILY 02/11/18 [History Confirmed 02/11/18] PFSH Medical History Atrial fibrillation (Chronic) Hyperlipemia (Chronic) Hypertension (Chronic) Type 2 diabetes mellitus (Chronic) GERD (gastroesophageal reflux disease) (Chronic) History of prostate cancer (Chronic) AUGUSTIN (obstructive sleep apnea) (Chronic) Surgical History History of hernia repair (Resolved) History of lithotripsy (Resolved) History of prostatectomy (Resolved) Family History Mother Diabetes Father Myocardial infarction, Onset Age: 69 CAD (coronary artery disease) Brother Diabetes Social History Smoking Status: Former smoker alcohol intake: current Assessment AND Plan Orders Orders: Coding Level of Care Code No Charge Coding Level of Care Code No Charge 02/14/18 1328 <Electronically signed by Richie Rose MD> Date Richie Rose MD Cosigner Signature: Date (if applicable) CC: 12 LEAD EKG PERFORMED Observed: 02/11/2018 Status: F Source: APPLE BY [facility] 10:16 AM [facility] REPOSITORY [facility] [address] [place] [address] 12 Lead EKG performed by [facility] 02/11/18 1016 MR#: [id number] Acct: [id number] Name: SANTOS JEWELL Rep #: [id number] : 1945 73 From: Richie Rose MD Attending Dr: Richie Rose MD Status: DEP AMB Ordering Dr: Richie Rose MD Date: 02/11/18 Location: [facility] Sex: M C Admitted: [facility]/12 Lead EKG performed by [facility] ECG Report Interpretation Atrial fibrillation Left axis deviationPossible LAFBPoor R wave progressionABNORMAL Electronically signed on 02/12/2018 at 17:53 by Richie Rose Software Version [id number] 02/12/18 1757 Date Richie Rose MD CC: DELORES Beaver Date Dictated: 02/11/18 1016 Date Transcribed: 02/11/18 1016 Radio Time Buyer: PM Signed OPERATIVE REPORT Observed: 02/04/2018 Status: F Source: APPLE 1:55 PM [facility] REPOSITORY [facility] Medical Records Department [address] [place] [address] Operative Report 02/04/18 1353 MR#: [id number] Acct: [id number] Name: SANTOS JEWELL Rep #: [id number] : 1945 73 From: Richie Rose MD PCP: DELORES Baca Status: REG SDC Y Location: [facility] Problem List (1) Atrial fibrillation Status: Chronic Qualifiers: Atrial fibrillation type: persistent Qualified Code(s): I48.1 - Persistent atrial fibrillation Operative Report Date of Procedure: 02/04/18 Procedure: Synchronized biphasic DC cardioversion Indications: Atrial fibrillation Consent: Per the patient Premedications: Per Dr. Anmol Jewell of pulmonology and critical care medicine with propofol 120 mg IV push total Procedure: Synchronized biphasic DC cardioversion: 200 J x1: Result: Sinus rhythm with return to atrial fibrillation Synchronized biphasic DC cardioversion: 300 J x1: Result: Sinus rhythm with return to atrial fibrillation Complications: No apparent complications This note was generated using a voice recognition system and there may be incorrect words, spelling or punctuation that were not noted when reviewing the office note prior to saving. 02/04/18 1355 <Electronically signed by Richie Rose MD> Date Richie Rose MD CC: DELORES Beaver; Richie Rose MD Signed OPERATIVE REPORT Observed: 02/04/2018 Status: F Source: [place] 1:33 PM [facility] REPOSITORY [facility] Medical Records Department [address] [place] [address] Operative Report 02/04/18 1329 MR#: [id number] Acct: [id number] Name: SANTOS JEWELL Rep #: [id number] : 1945 73 From: Anmol Jewell DO PCP: DELORES Baca Status: REG SD Y Location: [facility] Operative Report Date of Procedure: 02/04/18 CONSCIOUS SEDATION REPORT DATE OF SERVICE: February 04, 2018 BRIEF HISTORY OF PRESENT ILLNESS: The patient is a 73-year-old male who presents to [facility] to undergo an elective outpatient cardioversion due to underlying atrial fibrillation. The patient's last surface echocardiogram revealed an ejection fraction of approximately 55%. He has never undergone a previous attempt at cardioversion. He denies any medication allergies. He does report a history of obstructive sleep apnea, for which he reportedly utilizes nocturnal PAP therapy. He denies a history of COPD or asthma. PHYSICAL EXAMINATION: VITAL SIGNS: Reviewed and were acceptable. GENERAL: The patient is an obese male, in no apparent distress, speaking in full sentences. HEENT: Normocephalic, atraumatic. Mucous membranes are moist and pink. Good mouth opening noted. Trachea is midline. Good neck mobility. MPIII CHEST: S1, S2 irregularly irregular. No murmurs, rubs or gallops were noted. LUNGS: Clear to auscultation bilaterally without appreciable wheezes, rales or rhonchi. ABDOMEN: Soft, nontender, nondistended. Positive bowel sounds. EXTREMITIES: There is no clubbing, cyanosis or edema. ASA Class: II DESCRIPTION OF PROCEDURE: After confirmation of informed consent, the patient's anesthesia plan was reviewed in detail. Propofol was chosen. Risks and benefits were reviewed and the patient agreed to proceed. At 1236, the patient received his first bolus of propofol. In total, the patient received 80 mg of propofol, after which time, he received a 200 J synchronized cardioversion by Dr. Rose at the bedside. This was unsuccessful in achieving normal sinus rhythm. The patient was then given an additional 40 mg of propofol, after which time, he received a 300 J synchronized cardioversion. This, too, was unsuccessful in restoring normal sinus rhythm. In total, the patient received 120 mg of propofol throughout the entire procedure. The patient was monitored until 1247, at which time, he reached his baseline mental status and function. The patient tolerated the procedure well. COMPLICATIONS: None ESTIMATED BLOOD LOSS: None RECOMMENDATIONS: Okay to recover in usual fashion. Code Visit 9xxxx: Other Procedure See Report - [id number] 02/04/18 1333 <Electronically signed by Anmol Jewell DO> Date Anmol Jewell DO CC: DELORES Beaver; Anmol Jewell D.O.; Richie Rose MD Signed BASIC METABOLIC Collected: 01/31/2018 Status: F Source: APPLE PROFILE (BMP) 10:22 AM [facility] REPOSITORY TYPE CODE TESTS RESULT OUT OF RANGE REFERENCE UNITS LAB L501.0100 74-106 mg/dL High GLU 213 Result Comment: Glucose result greater than or equal to 200 mg/dL suggests DIABETES MELLITUS per A.D.A. criteria. Please note revised GLUCOSE reference range effective 2017. LAB L501.1000 7-18 mg/dL Normal BUN 15 LAB L501.1100 0.70-1.30 mg/dL Normal CREAT,SERUM 1.30 Result Comment: The validity of the calculated GFR AND GFRAA in patients over 70 years has not been determined. Clinical correlation is essential. LAB L501.1110 >60 mL/min Low EST GFR 57 Result Comment: Non- GFR Calc LAB L501.1115 >60 mL/min Normal EST GFR - AA 69 Result Comment: GFR Calc LAB L501.1300 10-20 RATIO Normal BUN/CRE 11.5 LAB L501.2200 8.5-10.1 mg/dL CA Normal 8.6 LAB L501.5300 136-145 mmol/L NA Normal 137 LAB L501.5600 3.5-5.1 mmol/L K Normal 4.5 LAB L501.5900 98-107 mmol/L CL Normal 106 LAB L501.6100 21.0-32.0 mmol/L Normal CO2 28.0 LAB L501.6200 5-15 Low GAP 3 Performed By: #### L500.2500 #### [facility] [address] [place], [address] STRESS REPORT Observed: 01/21/2018 Status: F Source: APPLE 1:31 PM [facility] REPOSITORY [facility] Cardiovascular Services [address] [place] [address] MR#: [id number] Acct: [id number] Name: SANTOS JEWELL Rep #: [id number] : 1945 73 From: Richie Rose MD Primary Care: DELORES Baca Status: REG CLI Ordering Dr: Sex: M C Stress Test Report Date: 01/21/2018 Procedure: Pharmacologic stress nuclear imaging study Indications: Atrial fibrillation Consent: Per the patient Procedure: The patient underwent pharmacologic (Regadenoson) evaluation with a peak heart rate of 90 beats per minute (62 predicted maximal heart rate) and a peak blood pressure of 140/86 mmHg. The baseline ECG demonstrated 0 fibrillation; nonspecific T wave abnormality. The peak pharmacologic ECG demonstrated no obvious ECG changes. There were no cardiac dysrhythmias pretest, during pharmacologic infusion, or recovery. There was no complaint of chest discomfort during pharmacologic infusion or recovery. The examination was discontinued secondary to completion of protocol. Impression: 1. Pharmacologic (Regadenoson) evaluation 2. Peak pharmacologic ECG with no obvious ECG changes. 3. There were no cardiac dysrhythmias pretest, during pharmacologic infusion, or recovery. 4. Nuclear images pending Myocardial perfusion imaging study: Technique: The patient was injected with 144.4 millicuries of technetium 99m Cardiolite and subsequently rest SPECT Cardiolite nuclear imaging was obtained in the horizontal long, vertical long, and short axis views. The patient underwent pharmacologic (Regadenoson) evaluation with a peak heart rate of 90 beats per minute (62 % percent predicted maximal heart rate) and a peak blood pressure of 140/86 mmHg. The patient was injected with 44.1 millicuries of technetium 99m Cardiolite and subsequently stress SPECT Cardiolite nuclear imaging was obtained in the horizontal long, vertical long, and short axis views. A gated Cardiolite study at peak stress was obtained. Interpretation: Rest and stress SPECT Cardiolite nuclear imaging status post realignment, normalization, and attenuation correction demonstrate small area of subtle diminished tracer uptake near the apical segments without significant change between rest and stress. There is end systolic thickening and brightening. The gated Cardiolite study demonstrates myocardial thickening and inward wall motion. The reported LVEF is 69%. Impression: 1. And stress SPECT Cardiolite nuclear imaging demonstrate myocardial perfusion changes appearing compatible with the effects of physiologic apical thinning with no myocardial perfusion changes considered diagnostic for associated stress- induced myocardial ischemia or previous myocardial injury/infarction. 2. The gated Cardiolite study reports an LVEF of 69 %. This note was generated with Automatic Agencyation software. It may contain incorrect words, spelling, and punctuation that were not noted in checking the note before signing. 01/21/18 5081 <Electronically signed by Richie Rose MD> Date Richie Rose MD CC: DELORES Beaver; Richie Rose MD Date Dictated: 01/21/181327 Date Transcribed: 01/21/181327 Radio Time Buyer: PM Signed CARDIOLOGY VISIT Observed: 01/09/2018 Status: F Source: [place] REPORT 1:24 PM [facility] REPOSITORY [facility] [address] [place] [address] OFFICE VISIT Date of Service: 01/09/18 MR#: [id number] Acct: [id number] Name: SANTOS JEWELL Rep #: [id number] : 1945 Provider: Richie Rose MD Age/Sex: 73/M Location: [facility] Status: Signed HPI HPI Details: SANTOS JEWELL, is a 73 M who presents to the office today for for outpatient cardiovascular consultation for the diagnosis of atrial fibrillation. He states earlier this year, while sitting at home, he noted his smart watch to alert him that he had an irregular heart rhythm. He eventually presented himself to his primary care physician who subsequently diagnosed atrial fibrillation. He states he was subsequently placed on additional medical therapy with anticoagulant therapy with Xarelto. He had laboratory work performed which is unavailable at this time for review. He was subsequently referred to [facility] in [place], [place] for a transthoracic echocardiogram. According to the report his left ventricle was normal with an LV EF of 55%. The left atrium was reported as normal in size. Right atrium was reported as normal in size. The mitral valve had no regurgitation. The aortic valve had trivial regurgitation. The tricuspid valve and pulmonic valve both had mild regurgitation. He states he has had no further cardiac diagnostic testing or any other therapeutic intervention. He denies any chest discomfort at rest or with exertion. He has noted no significant change with his respiratory status. There is been no orthopnea, PND, or peripheral pitting edema. There has been no near syncope or syncope. He states he does feel tired and fatigued. He also comments that he has obstructive sleep apnea. He follows with Dr. Farnsworth for this. He states that he must have his CPAP device at night to be able to sleep comfortably. He had an ECG in the office today. He was noted to have atrial fibrillation with left axis deviation and possible left anterior fascicular block and poor R wave progression. Intake Vital Signs01/09/18 Height 6 ft 2 in 01/09/18 Weight: 247 lb 01/09/18 Body Mass Index (BMI) 31.7 01/09/18 Blood Pressure 124/82 H Intake Visit Reasons: A-Fib/Ref. Dr. Beaver/No cardiac hx Allergies No Known Allergies Allergy (Unverified 01/09/18 11:18) Medications aspirin 81 mg tablet,delayed release 81 mg PO DAILY 01/07/18 [History Confirmed 01/09/18] diltiazem ER 180 mg capsule,24 hr,extended release 180 mg PO DAILY 01/07/18 [History Confirmed 01/09/18] esomeprazole magnesium 40 mg capsule,delayed release 40 mg PO DAILY 01/07/18 [History Confirmed 01/09/18] glimepiride 4 mg tablet 4 mg PO QAM 01/07/18 [History Confirmed 01/09/18] lisinopril 20 mg tablet 20 mg PO DAILY 01/07/18 [History Confirmed 01/09/18] ranitidine 150 mg capsule 150 mg PO DAILY 01/07/18 [History Confirmed 01/09/18] rivaroxaban 20 mg tablet 20 mg PO DAILY 01/07/18 [History Confirmed 01/09/18] sitagliptin 100 mg tablet 100 mg PO DAILY 01/07/18 [History Confirmed 01/09/18] [facility] Medical History Atrial fibrillation (Chronic) Hyperlipemia (Chronic) Hypertension (Chronic) Type 2 diabetes mellitus (Chronic) GERD (gastroesophageal reflux disease) (Chronic) History of prostate cancer (Chronic) AUGUSTIN (obstructive sleep apnea) (Chronic) Surgical History History of hernia repair (Resolved) History of lithotripsy (Resolved) History of prostatectomy (Resolved) Family History Mother Diabetes Father Myocardial infarction, Onset Age: 69 CAD (coronary artery disease) Brother Diabetes Social History Smoking Status: Former smoker alcohol intake: current ROS Const Const: Negative for fatigue, weakness, weight gain, weight loss, frequent falls or excessive sweating Eyes Eyes: Negative for change in vision, blurry vision or transient loss of vision ENT ENT: Negative for dizziness or balance problems Cardio Chest Pain: No Palpitations: No Edema: None Muscle aches with walking: None Resp Respiratory: Negative for SOB with activity or SOB at rest Additional Details: HX AUGUSTIN wears CPAP @ Night GI GI: Negative vomiting or vomiting blood/hematemesis : Negative for hematuria Musc Musc: Negative for balance problems, muscle aches/ myalgia, muscle weakness or joint pain Skin Skin: Negative non-healing lesions or rash Neuro Neuro: Negative for weakness, blurry vision, dizziness, lightheadedness, frequent falls or orthostatic symptoms Fred Hematologic/Lymphatic: Negative for easy bleeding Endo Endo: Negative for fatigue or excessive sweating Psych Psych: Negative for anxiety or depression Allergy Allergy/Immunology: Negative for hives, Negative for rash Cardiology Exam Const Appearance: cooperative, healthy appearing, comfortable, no acute distress, well developed and well groomed Nutritional Appearance: overweight Orientation: alert, awake and oriented x3 Head Head: normal to inspection, normocephalic and atraumatic Ears: hearing grossly normal bilaterally Nose: external nose normal Face and Sinus: face symmetric Mouth: oral mucosae normal Teeth and gingiva: fair dentition Eyes Eyelids: eyelids normal Conjunctivae: conjunctivae normal Pupils: PERRL EOM: EOM intact bilaterally Neck Neck: normal visual inspection, full ROM and no lymphadenopathy Carotids: normal carotid upstroke Chest Chest inspection: normal inspection of the chest and symmetric chest movement Auscultation: Bilateral: Clear to Auscultation Cardio Palpation: normal PMI Rhythm: irregular rhythm Heart sounds: S1 normal and S2 normal GI GI: normal to inspection, bowel sounds present and soft Neuro General: alert, awake and oriented x3 Skin Skin: no rashes or lesions noted Extremities Pulses: Normal: Right Radial Pulse, Left Radial Pulse Lower Extremity Edema: None: Bilateral Psych Psychological: normal affect Assessment AND Plan 1. Persistent atrial fibrillation I48.1 Plan He is in atrial fibrillation. This appears to have occurred, based upon the date of his primary care physician note, earlier this spring as his primary care physician note available for review at this time is dated 09/05/2017. He is on rate control therapy. He is on anticoagulant therapy. A copy of his laboratory studies and his previous chest x- ray will be requested for review. Based upon his cardiovascular diagnosis, cardiovascular risk factors, symptoms of fatigue, etc. he will also undergo further cardiac diagnostic for the possibility of underlying CAD and myocardial ischemia. This will be with a pharmacologic stress nuclear imaging study. If this is abnormal then he would need to be considered for further evaluation with diagnostic cardiac catheterization. If this is unremarkable then he would be considered to proceed with synchronized biphasic DC cardioversion. Orders Orders: 2. Hyperlipidemia, unspecified hyperlipidemia type E78.5 Plan He does have a history of hyperlipidemia. He is on lipid- lowering medication. He is being followed by his primary care physician. 3. Essential hypertension I10 Plan He has a history of hypertension. He will continue his medical management. 4. Diabetes mellitus, type II E11.9 Plan He does have a history of diabetes mellitus. He believes it is reasonably well controlled. Based upon his cardiovascular risk factors he will undergo further evaluation as noted above. 5. AUGUSTIN (obstructive sleep apnea) G47.33 Plan He has obstructive sleep apnea may be a contributing factor to his atrial dysrhythmia. He will continue to follow with Dr. Farnsworth for this. Plan Detail Other Orders Orders: Additional Comments Thank you for allowing me to participate in the care of your patient. Please don't hesitate to call if any issues arise. This note was generated using a voice recognition system and there may be incorrect words, spelling or punctuation that were not noted when reviewing the office note prior to saving. Follow Up 3 Months (PFM) 01/09/18 (Copy of PCP labs and CXR) Coding Level of Care Code Off vis,new,level 4 Diagnoses Persistent atrial fibrillation I48.1 Atrial fibrillation type: persistent Hyperlipidemia, unspecified hyperlipidemia type E78.5 Hyperlipidemia type: unspecified Essential hypertension I10 Hypertension type: essential hypertension Diabetes mellitus, type II E11.9 AUGUSTIN (obstructive sleep apnea) G47.33 Coding Level of Care Code Off vis,new,level 4 Diagnoses Persistent atrial fibrillation I48.1 Atrial fibrillation type: persistent Hyperlipidemia, unspecified hyperlipidemia type E78.5 Hyperlipidemia type: unspecified Essential hypertension I10 Hypertension type: essential hypertension Diabetes mellitus, type II E11.9 AUGUSTIN (obstructive sleep apnea) G47.33 01/09/18 1324 <Electronically signed by Richie Rose MD> Date Richie Viera Signature: Date (if applicable) CC: DELORES Beaver; Eric Farnsworth MD 12 LEAD EKG PERFORMED Observed: 01/09/2018 Status: F Source: [facility] 11:14 AM [facility] REPOSITORY [facility] [address] [place] [address] 12 Lead EKG performed by [facility] 01/09/181112 MR#: [id number] Acct: [id number] Name: SANTOS JEWELL Rep #: [id number] : 1945 73 From: Richie Rose MD Attending Dr: Richie Rose MD Status: DEP [facility] Ordering Dr: Richie Rose MD Date: 01/09/18 Location: [facility] Sex: M C Admitted: [facility]/12 Lead EKG performed by [facility] ECG Report Interpretation Atrial fibrillation Left axis deviationPossible Left anterior fascicular blockPoor R wave progressionABNORMAL Electronically signed on 01/09/2018 at 13:26 by Richie Rose Software Version [id number] 01/09/18 1329 Date Richie Rose MD CC: Date Dictated: 01/09/181112 Date Transcribed: 01/09/181112 Radio Time Buyer: PM Signed ECHO COMPLETE W/WO Observed: 09/19/2017 Status: F Source: [facility] CONTRAST 10:03 AM SYSTEM REPOSITORY Patient Name: SANTOS JEWELL Ultrasound Exam Date/Time 09/19/2017 10:41:27 EDT Exam Echo Complete w/wo Contrast Ordering Physician DO BEAVER EUGENE F. Accession Number [id number] Reason For Exam at [facility] Report TRANSTHORACIC ECHOCARDIOGRAM PATIENT: Santos Jewell STUDY DATE: 09/19/2017 : 1945 AGE: 72 HT/WT: 185.4 cm (73 106.6 kg (234.5 in) lb) GENDER: M BP: 96 / 53 LOCATION: [facility] PATIENT Outpatient [facility] STATUS: *ORDERING PHYSICIAN: * Gabe Beaver *READING PHYSICIAN: * Marlo Larios, *CYLINDER LOADER: Bunny Leonardo RDCS, MD AE --- INDICATIONS: 785.1 palpitations. --- CONCLUSIONS SUMMARY: 1. Left ventricle: Systolic function is normal by visual assessment. The estimated ejection fraction is 55%. --- STUDY DATA: Complete transthoracic echocardiogram. Procedure: Image quality was fair. The study was technically limited due to poor acoustic window availability and body habitus. Intravenous imaging enhancement (Definity) was administered to opacify the chamber. Definity lot #: [id number]. M-mode, complete 2D, complete spectral Doppler, and color flow Doppler images were acquired and archived for permanent storage and are available for subsequent review. Study status: Routine. Patient status: Outpatient. --- FINDINGS LEFT VENTRICLE: The cavity size is normal. Wall thickness is normal. Systolic function is normal by visual assessment. The estimated ejection fraction is 55%. There are no regional wall motion abnormalities. Unable to assess LV diastolic function due to suboptimal technical data RIGHT VENTRICLE: The cavity size is normal. Wall thickness is normal. Systolic function is normal. Right ventricular systolic pressure is within the normal range. VENTRICULAR SEPTUM: There is no evidence of a ventricular septal defect. LEFT ATRIUM: The atrium is normal in size. RIGHT ATRIUM: The atrium is normal in size. ATRIAL SEPTUM: Color Doppler shows no evidence of shunt. MITRAL VALVE: Structurally normal valve. Doppler: There is no regurgitation. AORTIC VALVE: Structurally normal valve. Trileaflet. Doppler: There is trivial, less than 1+ regurgitation. TRICUSPID VALVE: Structurally normal valve. Doppler: There is trivial, less than 1+ regurgitation. PULMONIC VALVE: Structurally normal valve. Doppler: There is trivial, less than 1+ regurgitation. AORTA: The aorta is normal. PULMONARY ARTERY: Main pulmonary artery: Normal. PERICARDIUM: There is no pericardial effusion. SYSTEMIC VEINS: Inferior vena cava: The vessel is normal. The IVC collapses by greater than 50% with inspiration. --- Measurements Left ventricle Value Reference LV ID, ED 4.6 cm 4.2 - 5.9 LV ID, ES 2.5 cm --------- LV PW thickness, ED (H) 1.1 cm 0.6 - 1.0 Ventricular septum Value Reference IVS thickness, ED (H) 1.3 cm 0.6 - 1.0 LVOT Value Reference LVOT ID, A-P 2.3 cm --------- LVOT mean velocity, S 0.4 m/sec --------- LVOT VTI, S 12.8 cm --------- LVOT peak gradient, S 2 mm Hg --------- Stroke volume (SV), LVOT DP 51 ml --------- Stroke index (SV/bsa), LVOT DP 21 ml/m2 --------- Aorta Value Reference Aortic root ID 4.0 cm <4.4 Aortic root ID, STJ, ED 3.5 cm --------- Ascending aorta ID, A-P 3.7 cm --------- Left atrium Value Reference LA volume/bsa, ES, 2-p 36 ml/m2 --------- Right atrium Value Reference RA area, ES, A4C (H) 21 cm2 10 - 18 Right ventricle Value Reference RV ID, minor axis, ED, A4C base 3.9 cm 2.4 - 4.2 RV ID, minor axis, ED, A4C mid 3.5 cm 2.0 - 3.5 TAPSE 2.2 cm --------- Legend: (L) and (H) judd values outside specified reference range. Electronically signed by Marlo Larios MD 09/19/2017 13:03 Final Dictated: 09/19/2017 1:03 pm Dictating Physician: MARLO LARIOS Signed Date and Time: 09/19/2017 1:03 pm Signed by: MARLO LARIOS ALLERGIES ALLERGIES DATE TYPE / CODE NAME / CODE REACTION SEVERITY SOURCE 03/11/2018 Drug No Known Unknown [facility] Allergy/4160 Allergies/F00 [facility] 77003(SNOMED 1711609(RXNOR Repository CT) M) ENCOUNTERS ENCOUNTERS ADMIT/DISCHARGE ACCOUNT NUMBER ADMITTING ENCOUNTER LOCATION SOURCE CLASS 04/01/2018/04/01/20 [id number] Ambulatory BMSBuilding: [place] 18 BMS.[facility] Repository 03/25/2018 [id number] Ambulatory BMSBuilding: [place] BMS.CF.[facility] Repository 03/25/2018 [id number] Ambulatory BMSBuilding: [place] BMS.CF.[facility] Repository 03/25/2018/03/25/20 [id number] Ambulatory [address] ding:CLSP Repository 03/11/2018/03/11/20 [id number] Ambulatory BMSBuilding: [place] 18 BMS.[facility] Repository 02/27/2018 [id number] Ambulatory BMSBuilding: [facility] Repository 02/25/2018/02/28/20 [id number] [place], Ambulatory [address] ding:PCURoom Repository : [id number]: 1 02/25/2018 [id number] [place], Ambulatory BMSBuilding: [place] BMS.CF.[facility] Repository 02/25/2018 [id number] [place], Ambulatory BMSBuilding: [place] BMS..[facility] Repository 02/25/2018 [id number] [place], Ambulatory BMSBuilding: [place] BMS..[facility] Repository 02/25/2018 [id number] Ambulatory BMSBuilding: [facility] Repository 02/11/2018/02/12/20 [id number] Ambulatory BMSBuilding: [place] 18 BMS.[facility] Repository 02/04/2018 [id number] Ambulatory BMSBuilding: [place] BMS.CF.[facility] Repository 02/04/2018 [id number] [facility] [place] [facility] 02/04/2018/02/05/20 [id number] Ambulatory [address] ding:CLSP Repository 01/31/2018 [id number] Ambulatory [facility] ding:LAB Repository 01/31/2018 [id number] Ambulatory BMSBuilding: [place] BMS.[facility] Repository 01/31/2018/10/19 [id number] Ambulatory BMSBuilding: [place] 18 BMS.[facility] Repository 01/21/2018 [id number] Ambulatory [facility] ding:[facility] Repository 01/21/2018 [id number] Ambulatory BMSBuilding: [place] [facility] Repository 01/09/2018/01/10/20 [id number] Ambulatory BMSBuilding: [place] 18 BMS.[facility] Repository 01/07/2018 [id number] Ambulatory BMSBuilding: [place] BMS.[facility] Repository 01/03/2018 [id number] Ambulatory BMSBuilding: [place] BMS.[facility] Repository 12/26/2017 [id number] Ambulatory BMSBuilding: [place] BMS.[facility] Repository 09/19/2017 [id number] Ambulatory [facility] Repository PAYERS PAYERS ENCOUNTER GUARANTOR PAYER SUBSCRIBER SOURCE 04/01/2018 SANTOS JONES1 Primary SANTOS NUNEZ: [place] Insurance:MEDICARE [id number] [address]Hda: (330) Number: Repository [phone] () [id number] Date:2018-03-03 04/01/2018 Secondary SANTOS NUNEZ: [place] [facility] [id number] Community y Number: [facility] [id number] Repository Date:4795-30-69[address] [address]ZX: 04/01/2018 Tertiary NOT GIVENUNK [place] Insurance:SELF PAY [facility] Number: Effective Repository Date:2018-04-01 03/25/2018 SANTOS JONES1 Primary SANTOS KIRANB: [place] Insurance:MEDICARE [id number] [address]Dyd: (330) Number: Repository [phone] (HP) [id number] Date:2018-03-03 03/25/2018 Secondary SANTOS NUNEZ: [place] Insurance:ANTHEMPolic [id number] Community y Number: Hospital [id number] Repository Date:9296-79-44YO [address] [place] [address]BN: 03/25/2018 Tertiary NOT GIVENUNK [place] Insurance:SELF PAY [facility] Number: Effective Repository Date:2018-03-25 03/25/2018 SANTOS JONES1 Primary SANTOS KIRANB: [place] Insurance:MEDICARE [id number] A [facility] [address]Ssb: (330) Number: Repository [phone] () [id number] Date:2018-03-03 03/25/2018 Secondary SANTOS NUNEZ: [place] Insurance:ANTHEMPolic [id number] Community y Number: Hospital [id number] Repository Date:5218-35-72[address], [place] [address]RC: 03/25/2018 Tertiary NOT GIVENUNK [place] Insurance:SELF PAY [facility] Number: Effective Repository Date:2018-03-25 03/25/2018 SANTOS JONES1 Primary SANTOS KIRANB: [place] Insurance:MEDICARE [id number] [facility] A [facility] 12419Hcz: (330) Number: Repository [phone] () [id number] Date:2018-03-03 03/25/2018 Secondary SANTOS NUNEZ: [place] Insurance:ANTHEMPolic [id number] Community y Number: Hospital [id number] Repository Date:0194-08-38IZ [address], [place] [address]YR: 03/25/2018 Tertiary NOT GIVENUNK [place] Insurance:SELF PAY [facility] Number: Effective Repository Date:2018-03-03 03/11/2018 SANTOS JONES1 Primary SANTOS KIRANB: [place] Insurance:MEDICARE [id number] Hospital [address]Tdn: (330) Number: Repository [phone] () [id number] Date:2018-03-03 03/11/2018 Secondary SANTOS JEWELLLEONELA: [place] Insurance:ANTHEMPolic [id number] [facility] y Number: Hospital [id number] Repository Date:3000-04-91YZ [address] [place] [address] 61916AN: 03/11/2018 Tertiary NOT GIVENUNK [place] Insurance:SELF PAY [facility] Number: Effective Repository Date:2018-03-11 02/27/2018 SANTOS JEWELL1021 Primary SANTOS Mcdermott MAYRA: [place] Insurance:MEDICARE [id number] Hospital [address]Gcm: (330) Number: Repository [phone] () [id number] Date:2018-02-25 02/27/2018 Secondary SANTOS Sharron MAYRA: [place] Insurance:ANTHEMPolic [id number] Community y Number: Hospital [id number] Repository Date:0759-62-09AQ [id number] [place] [address] 29407BD: 02/27/2018 Tertiary NOT GIVENUNK [place] Insurance:SELF PAY [facility] Number: Effective Repository Date:2018-02-27 02/25/2018 SANTOS JEWELL1021 Primary SANTOS KIRANB: [place] Insurance:MEDICARE [id number] Hospital [address]Gqq: (330) Number: Repository [phone] () [id number] Date:2018-02-25 02/25/2018 Secondary SANTOS NUNEZ: [place] Insurance:ANTHEMPolic [id number] Community y Number: Hospital [id number] Repository Date:5769-61-43DR [address] [place] [address] 88042OB: 02/25/2018 Tertiary NOT GIVENUNK [place] Insurance:SELF PAY [facility] Number: Effective Repository Date:2018-02-25 02/25/2018 SANTOS JONES1 Primary SANTOS JEWELLB: [place] Insurance:MEDICARE [id number] [place] PART A [facility] [address]Zkk: (330) Number: Repository [phone] () [id number] Date:2018-02-25 02/25/2018 Secondary SANTOS JEWELLB: [place] Insurance:ANTHEMPolic [id number] [facility] y Number: Hospital [id number] Repository Date:2321-36-36EJ [address] [place] [address] 90[address]UT: 02/25/2018 Tertiary NOT GIVENUNK [place] Insurance:SELF PAY [facility] Number: Effective Repository Date:2018-02-25 02/25/2018 SANTOS JONES1 Primary SANTOS JEWELLB: [place] Insurance:MEDICARE [id number] [place] PART [place] [facility] [address]Lzj: (330) Number: Repository [phone] () [id number] Date:2018-02-25 02/25/2018 Secondary SANTOS JEWELLB: [place] Insurance:ANTHEMPolic [id number] [facility] y Number: Hospital [id number] Repository Date:1461-48-43JY [address] [place] [address] 927[address]RP: 02/25/2018 Tertiary NOT GIVENUNK [place] Insurance:SELF PAY [facility] Number: Effective Repository Date:2018-02-25 02/25/2018 SANTOS JONES1 Primary SANTOS JEWELLB: [place] Insurance:MEDICARE [id number] [facility] [address]Zvs: (330) Number: Repository [phone] () [id number] Date:2018-02-25 02/25/2018 Secondary SANTOS Sharron JEWELLB: [place] Insurance:ANTHEMPolic [id number] [facility] y Number: Hospital [id number] Repository Date:2730-47-96GI [address] [place] [address] 31497CU: 02/25/2018 Tertiary NOT GIVENUNK [place] Insurance:SELF PAY [facility] Number: Effective Repository Date:2018-02-25 02/25/2018 SANTOS JONES1 Primary SANTOS KIRANB: [place] Insurance:MEDICARE [id number] [place] PART A [facility] [address]Nfd: (330) Number: Repository [phone] () [id number] Date:2018-02-25 02/25/2018 Secondary SANTOS KIRANB: [place] Insurance:ANTHEMPolic [id number] [facility] y Number: Hospital [id number] Repository Date:9116-15-44ZZ [address] [address]GJ: 02/25/2018 Tertiary NOT GIVENUNK [place] Insurance:SELF PAY [facility] Number: Effective Repository Date:2018-02-25 02/11/2018 SANTOS JONES1 Primary SANTOS JEWELLB: [place] Insurance:MEDICARE [id number] [facility] [address]Tms: (330) Number: Repository [phone] () [id number] Date:2018-01-23 02/11/2018 Secondary SANTOS JEWELLB: [place] Insurance:ANTHEMPolic [id number] [facility] y Number: Hospital [id number] Repository Date:9030-94-55FC [address] [place] [address] 39880KB: 02/11/2018 Tertiary NOT GIVENUNK [place] Insurance:SELF PAY [facility] Number: Effective Repository Date:2018-02-11 02/04/2018 SANTOS JONES1 Primary SANTOS JEWELLB: [place] Insurance:MEDICARE [id number] [place] PART [place] [facility] 00126Iyz: (330) Number: Repository [phone] () [id number] Date:2018-01-23 02/04/2018 Secondary SANTOS R BROWNDOB: [place] Insurance:ANTHEMPolic [id number] [facility] y Number: Hospital [id number] Repository Date:9147-67-82UQ [address] [place] [address] 50072CD: 02/04/2018 Tertiary NOT GIVENUNK [place] Insurance:SELF PAY Community [facility] Number: Effective Repository Date:2018-02-04 02/04/2018 SANTOS JONES1 Primary SANTOS NUNEZ: [place] Insurance:MEDICARE [id number] A [facility] [address]Sbu: (330) Number: Repository [phone] () [id number] Date:2018-01-23 02/04/2018 Secondary SANTOS NUNEZ: [place] Insurance:[place]HE[place]olic [id number] [facility] y Number: Hospital [id number] Repository Date:0831-15-86YY [id number] [place] [address] 49435AJ: 02/04/2018 Tertiary NOT GIVENUNK [place] Insurance:SELF PAY [facility] Number: Effective Repository Date:2018-02-04 02/04/2018 SANTOS JONES1 Primary SANTOS JEWELLLEONELA: [place] Insurance:MEDICARE [id number] Hospital [address]Gri: (330) Number: Repository [phone] () [id number] Date:2018-01-23 02/04/2018 Secondary SANTOS JEWELLLEONELA: [place] Insurance:ANTHEMPolic [id number] [facility] y Number: Hospital [id number] Repository Date:5414-59-52ZA [address] [place] [address] 70304CD: 02/04/2018 Tertiary NOT GIVENUNK [place] Insurance:SELF PAY [facility] Number: Effective Repository Date:2018-01-23 01/31/2018 SANTOS JONES1 Primary SANTOS Mcdermott MAYRA: [place] Insurance:MEDICARE [id number] Hospital [address]Voa: (330) Number: Repository [phone] () [id number] Date:2018-01-31 01/31/2018 Secondary SANTOS NUNEZ: [place] Insurance:ANTHEMPolic [id number] [facility] y Number: Hospital [id number] Repository Date:5509-98-77BG [address] [place] [address] 67419FX: 01/31/2018 Tertiary NOT GIVENUNK [place] Insurance:SELF PAY [facility] Number: Effective Repository Date:2018-01-31 01/31/2018 SANTOS JONES1 Primary SANTOS NUNEZ: [place] Insurance:MEDICARE [id number] Hospital [address]Wnz: (330) Number: Repository [phone] () [id number] Date:2018-01-31 01/31/2018 Secondary SANTOS JEWELLLEONELA: [place] Insurance:ANTHEMPolic [id number] Community y Number: Hospital [id number] Repository Date:7341-65-34RT [address] [place] [address] 15492DK: 01/31/2018 Tertiary NOT GIVENUNK [place] Insurance:SELF PAY [facility] Number: Effective Repository Date:2018-01-31 01/31/2018 SANTOS JONES1 Primary SANTOS JEWELLB: [place] Insurance:MEDICARE [id number] Hospital [address]Gxi: (330) Number: Repository [phone] () [id number] Date:2018-01-23 01/31/2018 Secondary SANTOS JEWELLLEONELA: [place] Insurance:ANTHEMPolic [id number] Community y Number: Hospital [id number] Repository Date:7031-53-35CV [address] [place] [address] 05213JB: 01/31/2018 Tertiary NOT GIVENUNK [place] Insurance:SELF PAY [facility] Number: Effective Repository Date:2018-01-31 01/21/2018 SANTOS JONES1 Primary SANTOS KIRANB: [place] Insurance:MEDICARE [id number] [place] PART A [facility] 07168Okj: (330) Number: Repository [phone] () [id number] Date:2018-01-09 01/21/2018 Secondary SANTOS KIRANB: [place] Insurance:ANTHE[place]olic [id number] [facility] y Number: Hospital [id number] Repository Date:4281-74-97CM [address] [place] [address] 15838EJ: 01/21/2018 Tertiary NOT GIVENUNK [place] Insurance:SELF PAY [facility] Number: Effective Repository Date:2018-01-09 01/21/2018 SANTOS JONES1 Primary SANTOS KIRANB: [place] Insurance:MEDICARE [id number] [place] [facility] [address]Jrl: (330) Number: Repository [phone] () [id number] Date:2018-01-09 01/21/2018 Secondary SANTOS KIRANB: [place] Insurance:ANTHEMPolic [id number] Community y Number: Hospital [id number] Repository Date:[id number] [address] [place] [address] [id number]: 01/21/2018 Tertiary NOT GIVENUNK [place] Insurance:SELF PAY [facility] Number: Effective Repository Date:2018-01-21 01/09/2018 SANTOS JONES1 Primary SANTOS KIRANB: [place] Insurance:MEDICARE [id number] [place] PART A [facility] [id number]: (330) Number: Repository [phone] () [id number] Date:2017-11-12 01/09/2018 Secondary SANTOS KIRANB: [employer] Insurance:ANTHEM [id number] [facility] Number: Repository [id number] Date:[id number] [address] [place] [address] [id number]: 01/09/2018 Tertiary NOT GIVENUNK [place] Insurance:SELF PAY [facility] Number: Effective Repository Date:2018-01-09 01/07/2018 Santos Souza Primary NOT GIVENUNK [place] Insurance:SELF PAY [facility] [address]Zrh: (330) Number: Effective Repository [phone] () Date:2018-01-07 01/03/2018 Santos Souza Primary NOT GIVENUNK [place] Insurance:SELF PAY [facility] [id number]: (330) Number: Effective Repository [phone] () Date:2017-11-05 12/26/2017 Santos Souza Primary NOT GIVENUNK [place] Insurance:SELF PAY [facility] [id number]: (330) Number: Effective Repository [phone] () Date:2017-11-05 09/19/2017 Santos Nunez: Primary Santos Nunez: [facility] Insurance:MedicarePol [id number] [facility]: Effective Repository [place], [place] Date: [id number]: () 09/19/2017 Secondary Santos Nunez: [facility] Insurance:MedicarePol [id number] System icy Number: Effective Repository Date: 09/19/2017 Tertiary Santos Nunez: [facility] Insurance:[place] [id number] System Cross Blue Repository [facility] Number: Effective Date:
== END 2018-03-25 12:30 | disposition home or self-care (01) ==
PROVIDERS: Family Provider Family Medicine; PCP Family Medicine; Referring Provider Internal Medicine Cardiovascular Disease; Visit Provider Internal Medicine Cardiovascular Disease
DX: I48.2 Chronic atrial fibrillation (principal); I10 Essential (primary) hypertension; E11.9 Type 2 diabetes mellitus without complications; E78.00 Pure hypercholesterolemia, unspecified; G47.33 Obstructive sleep apnea (adult) (pediatric); Z87.891 Personal history of nicotine dependence; Z85.46 Personal history of malignant neoplasm of prostate
CPT/HCPCS: 92960; 93005; J7040

== ENCOUNTER → 2020-03-31 12:49 | Outpatient (CLI) | payer MEDICARE, BC, SELFPAY ==
[2019-12-11 07:45] VITALS: BMI 31.3
[2020-04-01 07:11] LABS: SARS-COV-2 TOTAL ABS Reactive (Nonreactive)
== END ==
PROVIDERS: PCP Family Medicine; Referring Provider Dermatology Pediatric Dermatology; Visit Provider Dermatology Pediatric Dermatology
DX: L40.0 Psoriasis vulgaris (principal)
CPT/HCPCS: 36415; 86769

== ENCOUNTER 2020-06-21 10:22 | Outpatient (RCR) | payer MEDICARE, BC, SELFPAY ==
[2019-12-11 07:45] VITALS: BMI 31.3
[2020-06-21] MEDS: COVID-19 VACC, MRNA(PFIZER)/PF 30 MCG/0.3 ML SYRINGE IM (18:30)
[2020-07-12] MEDS: COVID-19 VACC, MRNA(PFIZER)/PF 30 MCG/0.3 ML SYRINGE IM (18:12)
== END 2020-09-20 23:59 ==
LOC: IMMUN 10:22
PROVIDERS: PCP Family Medicine; Visit Provider Family Medicine
DX: Z23 Encounter for immunization (principal)
CPT/HCPCS: 0001A; 0002A; 91300